=== PATIENT | female | born 1950 | race African-American/Black ===

== ENCOUNTER 2017-09-29 09:05 | Emergency (ER) | payer OTHER ==
--- OUTSIDE RECORDS SUMMARY | 2017-09-29 09:07 | XMS REPORT ---
:1950 [facility] [address] [place] [address] Care Team Providers Name Role Phone ADRIAN LITTLE Primary Care Provider Unavailable ADRIAN LITTLE Unavailable Unavailable Problems This patient has no known problems. Allergies, Adverse Reactions, Alerts This patient has no known allergies or adverse reactions. Medications This patient has no known medications. Encounters Start End Encounter Admission Attending Care Care Encounter Date/Time Date/Time Type Type Clinicians Facility Department ID 2017-08-01 2017-08-01 Outpatient [facility] [id number] 20:21:00 20:21:00 ADRIAN Results Test Description Test Time Test Comments Text Results Atomic Results Result Comments Lipid Profile 2017-08-01 22:14:00 Test Item Value Reference Range Comments Cholesterol (test code=CHOL) 156 mg/dL 0-200 Triglycerides (test code=TRIG) 193 mg/dL 9-200 HDL (test code=HDL) 53 mg/dL 50-60 Chol/HDL (test code=CHOLPHDL) 2.9 Ratio 0.0-4.4 LDL, Calculated (test 64 mg/dL 0-130 (NOTE)RISK OF HEART DISEASEPublished code=LDLC) by Norwegian Heart AssociationAnalyte Optimal Boderline Increased RiskCHOL <200 200-239 >240TRIG <150 150-199 >200HDL Male: >60 <40HDL Female: >60 <50LDL <100 130-159 >160LDL NEAR OPTIMAL IS 100-129 VLDL (test code=VLDL) 39 mg/dL 5-40 LDL/HDL (test code=LDLPHDL) 1
[2017-09-29 10:09] LABS: Urine Blood NEGATIVE (NEG); Urine Glucose NEGATIVE (NEG); Urine Protein TRACE (NEG)
[2017-09-29 10:12] LABS: Urine Bacteria >50 /HPF (<20); Urine Culture Reflex Order NOT NEEDED; Urine Mucus LIGHT /HPF (NONE SEEN)
[2017-09-29 10:15] LABS: Absolute Lymphocytes (CBC) 1.4 K/uL (0.7-4.9); Absolute Monocytes 0.6 K/uL (0.1-1.3); Absolute Neutrophil 4.2 K/uL (1.8-8.0); Basophils % 0.4 % (0-1.3); Hematocrit 37.8 % (36.0-45.0); Lymphocytes % 22.1 % (15.3-44.8); MCH 26.9 pg (27.0-35.0); MCV 83.7 fL (80-100); MPV 8.9 fL (7.6-11.3); Monocytes % 9.6 % (3.3-12.3); RBC Red Blood Cell Count 4.52 M/uL (3.86-4.86)
[2017-09-29 10:20] LABS: Bicarbonate 26 mEq/L (21-31); Glucose Level 106 mg/dL (65-120); Lipase 26 U/L (22-51); Potassium 4.1 mEq/L (3.6-5.0); Sodium Level 135 mEq/L (135-145)
[2017-09-29 10:27] LABS: ALT/SGPT 13 IU/L (10-60); AST/SGOT 20 IU/L (10-42); Albumin 3.8 g/dL (3.2-5.5); Alkaline Phosphatase 93 IU/L (42-121); Amylase Level 89 U/L (28-100); BUN Blood Urea Nitrogen 20 mg/dL (6-20); Bilirubin Direct < 0.1 mg/dL (0-0.2); Bilirubin Total 0.3 mg/dL (0.3-1.2); Protein, Total 7.5 g/dL (6.0-8.3)
--- NOTE | 2017-09-29 10:47 | EDPHYS ---
Physician Documentation [facility] Name: Sondra Ruelas Age: 67 yrs Sex: Female : 1950 Arrival Date: 09/29/2017 Time: 09:09 Bed 6 Private MD: ED Physician Ad Lucas HPI: 09/29 10:12 This 67 yrs old Black Female presents to ER via Ambulatory with complaints of kb Nausea/Vomiting/Diarrhea. 10:12 The patient presents to the emergency department with nausea, diarrhea. Onset: The kb symptoms/episode began/occurred last week. Possible causes: unknown. The symptoms are aggravated by nothing. The symptoms are alleviated by nothing. Associated signs and symptoms: Pertinent positives: belching, diarrhea, nausea. Severity of symptoms: At their worst the symptoms were mild moderate in the emergency department the symptoms are unchanged. The patient has not experienced similar symptoms in the past. The patient has been recently seen by a physician: the ER physician, out of Town, 3 day(s) ago, with similar presenting complaints, states nothing was done for her during her ER visit at [place]. No abd pain. Has appt with Nicki on Sunday. Historical: - Allergies: 09:30 No Known Allergies; hb - Home Meds: 09:30 gemfibrozil 600 mg Oral tab 1 tab 2 times per day [Active]; Vitamin D Oral 50,000 unit hb [Active]; cetirizine 10 mg oral tab 1 tab once daily [Active]; clopidogrel 75 mg oral tab 1 tab once daily [Active]; fluoxetine 20 mg Oral cap 1 cap once daily [Active]; Dexilant 60 mg oral CpDB 1 cap once daily [Active]; amlodipine 5 mg tab 1 tab once daily [Active]; carvedilol 12.5 mg oral tab 1 tab 2 times per day [Active]; - PMHx: 09:30 Diverticulitis; CKD; Fatty Liver; Hypertension; Anxiety; hb - Immunization history:: Adult Immunizations up to date. - Social history:: Smoking status: Patient/guardian denies using tobacco. ROS: 10:11 Constitutional: Negative for fever, chills, and weight loss, ENT: Negative for injury, kb pain, and discharge, Neck: Negative for injury, pain, and swelling, Cardiovascular: Negative for chest pain, palpitations, and edema, Respiratory: Negative for shortness of breath, cough, wheezing, and pleuritic chest pain, Back: Negative for injury and pain, : Negative for injury, bleeding, discharge, and swelling, MS/Extremity: Negative for injury and deformity, Skin: Negative for injury, rash, and discoloration, Neuro: Negative for headache, weakness, numbness, tingling, and seizure. 10:11 Constitutional: Positive for malaise. 10:11 Abdomen/GI: Positive for nausea, diarrhea, Negative for abdominal pain, vomiting, constipation, abdominal cramps, abdominal distension, anorexia. Exam: 10:11 Constitutional: This is a well developed, well nourished patient who is awake, alert, kb and in no acute distress. Head/Face: Normocephalic, atraumatic. ENT: Nares patent. No nasal discharge, no septal abnormalities noted. Tympanic membranes are normal and external auditory canals are clear. Oropharynx with no redness, swelling, or masses, exudates, or evidence of obstruction, uvula midline. Mucous membranes moist. Neck: Trachea midline, no thyromegaly or masses palpated, and no cervical lymphadenopathy. Supple, full range of motion without nuchal rigidity, or vertebral point tenderness. No Meningismus. Chest/axilla: Normal chest wall appearance and motion. Nontender with no deformity. No lesions are appreciated. Cardiovascular: Regular rate and rhythm with a normal S1 and S2. No gallops, murmurs, or rubs. Normal PMI, no JVD. No pulse deficits. Respiratory: Lungs have equal breath sounds bilaterally, clear to auscultation and percussion. No rales, rhonchi or wheezes noted. No increased work of breathing, no retractions or nasal flaring. Abdomen/GI: Soft, non-tender, with normal bowel sounds. No distension or tympany. No guarding or rebound. No evidence of tenderness throughout. Skin: Warm, dry with normal turgor. Normal color with no rashes, no lesions, and no evidence of cellulitis. MS/ Extremity: Pulses equal, no cyanosis. Neurovascular intact. Full, normal range of motion. Neuro: Awake and alert, GCS 15, oriented to person, place, time, and situation. Cranial nerves II-XII grossly intact. Motor strength 5/5 in all extremities. Sensory grossly intact. Cerebellar exam normal. Normal gait. Vital Signs: 09:27 BP 135 / 64; Pulse 65; Resp 16; Temp 98.1; Pulse Ox 100% on R/A; Pain 3/10; hb 10:30 BP 142 / 68; Pulse 64; Resp 16; Pulse Ox 100% on R/A; hb MDM: 09:42 Patient medically screened. kb 10:11 Data reviewed: vital signs, nurses notes. Data interpreted: Pulse oximetry: on room air kb is 100 %. Interpretation: normal. 10:44 Counseling: I had a detailed discussion with the patient and/or guardian regarding: the kb historical points, exam findings, and any diagnostic results supporting the discharge/admit diagnosis, lab results, the need for outpatient follow up, a family practitioner, a weapons mechanic, to return to the emergency department if symptoms worsen or persist or if there are any questions or concerns that arise at home. 10:46 ED course: Pt reports symptoms are better after protonix. kb 10:47 ED course: Pt instructed to keep appt with Nicki on Sunday. kb 09/29 09:40 Order name: Urine Dipstick--Ancillary (enter results); Complete Time: 10:10 eb 09/29 09:42 Order name: Amylase, Serum; Complete Time: 10:28 kb 09/29 09:42 Order name: Basic Metabolic Panel; Complete Time: 10:28 kb 09/29 09:42 Order name: CBC with Diff; Complete Time: 10:20 kb 09/29 09:42 Order name: Hepatic Function; Complete Time: 10:28 kb 09/29 09:42 Order name: Lipase; Complete Time: 10:28 kb 09/29 09:42 Order name: Urine Microscopic Only; Complete Time: 10:14 kb 09/29 09:42 Order name: IV Saline Lock; Complete Time: 09:57 kb 09/29 09:42 Order name: Labs collected and sent; Complete Time: 09:57 kb Administered Medications: 10:15 Drug: ProTONIX 40 mg Route: IVP; Site: right antecubital; hb 10:46 Follow up: Response: No adverse reaction hb 10:55 Drug: Macrobid 100 mg Route: PO; hb 10:55 Follow up: Response: Medication administered at discharge. hb Disposition: 09/29/17 10:47 Discharged to Home. Impression: Gastro-esophageal reflux disease, Urinary tract infection, site not specified. - Condition is Stable. - Discharge Instructions: Gastroesophageal Reflux Disease, Adult, Urinary Tract Infection, [id number]. - Prescriptions for Protonix 40 mg Oral Tablet, Delayed Release (E.C.) - take 1 tablet by ORAL route once daily; 15 tablet. Macrobid 100 mg Oral Capsule - take 1 capsule by ORAL route every 12 hours for 7 days; 14 capsule. - Medication Reconciliation Form, Thank You Letter, Antibiotic Education, Prescription Opioid Use form. - Follow up: Emergency Department; When: As needed; Reason: Worsening of condition. Follow up: Private Physician; When: 2 - 3 days; Reason: Recheck today's complaints, Continuance of care, Re-evaluation by your physician. Addendum: 10/01/2017 08:47 Co-signature as Attending Physician, Ad Lucas MD I agree with the assessment and c larry plan of care. Signatures: Dispatcher [employer] Heather Santoro, STONE SAWYER-C STONE SAWYER-CkAd Dahl MD MD cha Baxter, Heather, RN RN
--- NOTE | 2017-09-29 10:47 | ER ---
Nurse's Notes [facility] Name: Sondra Ruelas Age: 67 yrs Sex: Female : 1950 Arrival Date: 09/29/2017 Time: 09:09 Bed 6 Private MD: Diagnosis: Gastro-esophageal reflux disease;Urinary tract infection, site not specified Presentation: 09/29 09:25 Presenting complaint: Patient states: N/D and low back pain x 3 days. Pt also reports hb an increase in belching x 2 days. Denies injury/urinary s/s. Transition of care: patient was not received from another setting of care. Onset of symptoms is unknown. Initial Sepsis Screen: Does the patient meet any 2 criteria? No. Patient's initial sepsis screen is negative. Does the patient have a suspected source of infection? No. Patient's initial sepsis screen is negative. Care prior to arrival: None. 09:25 Method Of Arrival: Ambulatory hb 09:25 Acuity: AILYN 3 hb Historical: - Allergies: :30 No Known Allergies; hb - Home Meds: :30 gemfibrozil 600 mg Oral tab 1 tab 2 times per day [Active]; Vitamin D Oral 50,000 unit hb [Active]; cetirizine 10 mg oral tab 1 tab once daily [Active]; clopidogrel 75 mg oral tab 1 tab once daily [Active]; fluoxetine 20 mg Oral cap 1 cap once daily [Active]; Dexilant 60 mg oral CpDB 1 cap once daily [Active]; amlodipine 5 mg tab 1 tab once daily [Active]; carvedilol 12.5 mg oral tab 1 tab 2 times per day [Active]; - PMHx: 09:30 Diverticulitis; CKD; Fatty Liver; Hypertension; Anxiety; hb - Immunization history:: Adult Immunizations up to date. - Social history:: Smoking status: Patient/guardian denies using tobacco. Screenin: Abuse screen: Denies threats or abuse. Denies injuries from another. Nutritional hb screening: No deficits noted. Tuberculosis screening: No symptoms or risk factors identified. Fall Risk None identified. Assessment: : General: Appears in no apparent distress. Behavior is calm, cooperative. Pain: Pain hb currently is 3 out of 10 on a pain scale. Neuro: Level of Consciousness is awake, alert, obeys commands, Oriented to person, place, time, situation. Cardiovascular: Capillary refill < 3 seconds Patient's skin is warm and dry. Respiratory: Airway is patent Trachea midline Respiratory effort is even, unlabored, Respiratory pattern is regular, symmetrical, Breath sounds are clear bilaterally. GI: Abdomen is non-distended, Bowel sounds present X 4 quads. Abd is soft and non tender X 4 quads. GI: Reports diarrhea, indigestion, nausea. : No signs and/or symptoms were reported regarding the genitourinary system. EENT: No signs and/or symptoms were reported regarding the EENT system. Derm: No signs and/or symptoms reported regarding the dermatologic system. Skin is intact, is healthy with good turgor. Musculoskeletal: No signs and/or symptoms reported regarding the musculoskeletal system. Circulation, motion, and sensation intact. Capillary refill < 3 seconds. 10:30 Reassessment: Patient appears in no apparent distress at this time. No changes from hb previously documented assessment. Patient and/or family updated on plan of care and expected duration. Pain level reassessed. Patient is alert, oriented x 3, equal unlabored respirations, skin warm/dry/pink. Vital Signs: 09:27 BP 135 / 64; Pulse 65; Resp 16; Temp 98.1; Pulse Ox 100% on R/A; Pain 3/10; hb 10:30 BP 142 / 68; Pulse 64; Resp 16; Pulse Ox 100% on R/A; hb ED Course: 09:09 Patient arrived in ED. mr 09:25 Annetta Winston, RN is Primary Nurse. hb 09:26 Triage completed. hb 09:31 Arm band placed on right wrist. hb 09:32 Patient has correct armband on for positive identification. Bed in low position. Call hb light in reach. Side rails up X 1. 09:42 Heather Anaya FNP-C is PHCP. kb 09:42 Ad Lucas MD is Attending Physician. kb 09:53 Inserted saline lock: 20 gauge in right antecubital area, using aseptic technique. hb Blood collected. 10:30 No provider procedures requiring assistance completed. IV discontinued, intact, hb bleeding controlled, No redness/swelling at site. Pressure dressing applied. Administered Medications: 10:15 Drug: ProTONIX 40 mg Route: IVP; Site: right antecubital; hb 10:46 Follow up: Response: No adverse reaction hb 10:55 Drug: Macrobid 100 mg Route: PO; hb 10:55 Follow up: Response: Medication administered at discharge. hb Outcome: 10:30 Discharged to home ambulatory, with significant other. hb 10:30 Condition: stable 10:30 Discharge instructions given to patient, family, Instructed on discharge instructions, follow up and referral plans. medication usage, Demonstrated understanding of instructions, follow-up care, medications, Prescriptions given X 2. 10:47 Discharge ordered by . kb 10:57 Patient left the ED. hb Signatures: Heather Anaya, OPTOMECHANICAL TECHNICIAN-C OPTOMECHANICAL TECHNICIAN-Isela Solorzano mr Annetta Winston, RN RN hb
[2017-09-29] MEDS ORDERED: NITROFURAN MACRO 100 MG CAP PO ONE (10:49)
== END 2017-09-29 10:57 | disposition home or self-care (01) ==
LOC: ER 09:05
DX: K21.9 Gastro-esophageal reflux disease without esophagitis (principal); N39.0 Urinary tract infection, site not specified; I10 Essential (primary) hypertension; F41.9 Anxiety disorder, unspecified
CPT/HCPCS: 36415; 80048; 80076; 81003; 81015; 82150; 83690; 85025; 96374; 99284

== ENCOUNTER 2020-02-11 16:12 | Emergency (ER) | payer OTHER ==
--- OUTSIDE RECORDS SUMMARY | 2020-02-11 16:16 | XMS REPORT | Encounter Summary ---
:1950 Author Care Team Providers Name Role Phone Ole Bowen MD Primary Care Provider [phone] Kaylie Lau MD OTHER [phone] Cody Laurie OTHER [phone] Reason for Visit Follow Up Visit Instructions 1. 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 Plan of Care Reminders Provider Appointments Follow up 02/11/2020 Clay Hermosillo 2:00PM MD [facility] None recorded. Referral None recorded. Procedures None recorded. Surgeries None recorded. Imaging None recorded. Medications Name Start Date acyclovir 400 mg tablet amlodipine 5 mg tablet azelastine 137 mcg (0.1 %) nasal spray aerosol B12 take it once a day carvedilol 12.5 mg tablet Take 1 tablet twice a day by oral route as directed. cetirizine 10 mg tablet Take 1 tablet every day by oral route as needed for 9 0 days. clonazepam 1 mg tablet Take 1 tablet every day by oral route at bedtime. clopidogrel 75 mg tablet Take 1 tablet every day by oral route as directed. cyclobenzaprine 10 mg tablet Dexilant 60 mg capsule, delayed release Take 1 capsule every day by oral route for 56 days. famotidine 40 mg tablet Flovent HFA 110 mcg/actuation aerosol inhaler fluoxetine 20 mg capsule fluticasone propionate 50 mcg/actuation nasal spray,richardson spension INHALE 1 SPRAYS IN EACH NOSTRIL BY INTRANASAL ROUTE 1 TIME PER DAY gabapentin 100 mg capsule Take 1 capsule 3 times a day by oral route for 15 day s. montelukast 10 mg tablet rosuvastatin 20 mg tablet Take 1 tablet every day by oral route as directed. valacyclovir 1 gram tablet Vitamin D2 1,250 mcg (50,000 unit) capsule Take 1 capsule every week by oral route as directed f or 28 days. Medications Administered None recorded. Vitals Height Weight BMI Blood Pressure 5 ft 7 in 176 lbs 27.6 kg/m2 119/52 mm[Hg] Results Lab Results None recorded. Allergies Code Code System Name Reaction Severity Status Onset 2551 RxNorm Ciprofloxacin Itching Moderate Active 2670 RxNorm Codeine Other Mild to Active Moderate Problems Name Status Onset Date Source Chronic Low Back Pain Active 07/04/2016 Seasonal Allergy Active 09/26/2016 Candidiasis of Skin Active 12/26/2016 Adverse Reaction to Drug Active 01/15/2017 Candidiasis of Vulva Active 09/04/2018 Chronic Kidney Disease Stage 3 Active 09/04/2018 Herpes Zoster Active Encounter Recurrent Herpes Simplex Active Encount er Candidal Vulvovaginitis Active Encounte r Hyperlipidemia Active History Dehydration Active Encounter Essential Hypertension Active History Acute Sinusitis Active Encounter Upper Respiratory Infection Active Enco unter Chronic Rhinitis Active Encounter Chronic Sinusitis Active Encounter Sinusitis Active Encounter Allergic Rhinitis Active Encounter Recurrent Ventral Incisional Hernia Active Encounter Steatosis of Liver Active Encounter Urinary Tract Infectious Disease Active Encounter Female Proctocele without Uterine Active Encounter Prolapse Cramp in Lower Limb Active Encounter Computed Tomography Result Abnormal Active Encounter Fracture of Ankle Active Encounter Elevated Liver Enzymes Level Active Enc ounter Procedures Date Name Performed by 11/02/2013 Colonoscopy Thru Stoma Spx Information n ot available 11/02/2013 Egd Information not avai lable 03/14/2013 Rpr Ventral Laura Init Reduc Information not available 06/04/2012 Anesth Repair of Hernia Information not available 06/04/2012 Hernia Repair Information not avai lable 06/04/2010 Cholecystectomy Information not avai lable 06/04/1984 Total Hysterectomy Information not avai lable Anesth Repair of Hernia Information not available Vaccine List Vaccine Type influenza, high dose seasonal 03/14/2013 03/18/2014 04/19/20170.5 mL pneumococcal conjugate PCV 13 03/14/2013 Social History Tobacco Smoking Status Never Smoker Past Encounters 01/21/2020 Prolapse of Vaginal Vault after Hysterec evi Young MD: [address], [place] [address], Ph. [phone] History of Present Illness Note: 69 yo G0 who presents here for f/u on vaginal prolapse. Pt not interested in surgical treatment for the prolapse. Pt would like to have a pessary placed. No vaginal bleeding but has been having frequent UTI and some constipation. Pt also is currently with a shingles outbreak. She has meds at the pharmacy to treat the condition.--LRReview of Systems: ROS as noted in the HPI Review of Systems None recorded. Physical Exam None recorded.
--- OUTSIDE RECORDS SUMMARY | 2020-02-11 16:16 | XMS REPORT | Encounter Summary ---
:1950 Author Care Team Providers Name Role Phone Ole Bowen MD Primary Care Provider [phone] Elvia Ruiz Primary Care Provider [phone] Kaylie Lau MD Referring Provider [phone] Rosa Mi MD Referring Provider [phone] Oumar Caceres MD OTHER [phone] Reason for Visit None recorded. Instructions 1. Herpes zoster valacyclovir 1 gram tablet Discussion Note: None recorded.Patient educational handouts: No information available. Plan of Care Reminders Provider Appointments None recorded. Lab None recorded. Referral None recorded. Procedures None recorded. Surgeries None recorded. Imaging None recorded. Medications Name Start Date acyclovir 400 mg tablet amlodipine 5 mg tablet amoxicillin 875 mg-potassium clavulanate 125 mg tablet azelastine 137 mcg (0.1 %) nasal spray aerosol carvedilol 12.5 mg tablet clonazepam 1 mg tablet clopidogrel 75 mg tablet cyclobenzaprine 10 mg tablet famotidine 40 mg tablet Flovent HFA 110 mcg/actuation aerosol inhaler fluoxetine 20 mg capsule Take 1 capsule every day by oral route for 90 days. fluticasone propionate 50 mcg/actuation nasal spray,richardson spension ibuprofen 800 mg tablet Kenalog 40 mg/mL suspension for injection Take 40 mg by injection route. lidocaine HCl 2 % mucosal jelly methylprednisolone 4 mg tablets in a dose pack montelukast 10 mg tablet TAKE 1 TABLET BY MOUTH EVERY DAY FOR 30 DAYS nystatin 100,000 unit/mL oral suspension Take 5 mL every 6 hours by oral route for 10 days. rosuvastatin 20 mg tablet valacyclovir 1 gram tablet Take 1 tablet every 8 hours by oral route for 7 days. Zyrtec 10 mg tablet TAKE 1 TABLET BY MOUTH EVERY DAY NEEDED FOR 30 DAY S Medications Administered None recorded. Vitals Height 5 ft 7 in Results Lab Results None recorded. Allergies Code Code System Name Reaction Severity Status Onset 454567 RxNorm Cipro Itching Mild to Active 03/21/2019 Moderate 258247 RxNorm Bactrim Abdominal Pain Active 2670 RxNorm Codeine Other Mild to Active Moderate Problems Name Status Onset Date Source Herniation of Rectum into Vagina Active 12/03/2017 Hyperlipidemia Active 03/25/2018 Anxiety Active 03/25/2018 Essential Hypertension Active 03/25/2018 Disorder of Coronary Artery Active 03/25/2018 Chronic Kidney Disease Stage 3 Active 03/25/2018 Prolapse of Urethra Active 03/27/2018 Procedures Date Name Performed by 06/04/2012 Cholecystectomy Information not avai lable 06/04/2010 Hernia Repair W/mesh Information not alyssia ilable 06/04/1985 Total Hysterectomy Information not avai lable Hernia Repair W/mesh Information not alyssia ilable Vaccine List Vaccine Type influenza, injectable, quadrivalent 06/04/2016 Social History Tobacco Smoking Status Never Smoker Past Encounters 01/27/2020 Herpes Zoster Krista Jama, [employer]: [address], [place] [address], Ph. History of Present Illness Note: <p>patient stated she was given gabapentin for the shingles but was not given acyclovir which she needs. telehealth phone visit done</p> Review of Systems None recorded. Physical Exam None recorded.
--- OUTSIDE RECORDS SUMMARY | 2020-02-11 16:16 | XMS REPORT | Continuity of Care Document ---
:1950 Author Organization [facility] t Address [address] [place] [address] Care Team Providers Name Role Phone ANABEL Primary Care Physician Unavailable DR YAMEL Attending Clinician Unavailable DR Scott ARELLANO Attending Clinician Unavailable DR THOMAS Attending Clinician Unavailable DR ALFREDO Attending Clinician Unavailable DR Genevieve HAMILTON Attending Clinician Unavailable DR ARYA Attending Clinician Unavailable DR Nevin SHELDON Attending Clinician Unavailable DR VANESSA Attending Clinician Unavailable ANABEL Attending Clinician Unavailable DR YAMEL Admitting Clinician Unavailable DR Scott ARELLANO Admitting Clinician Unavailable DR THOMAS Admitting Clinician Unavailable DR ALFREDO Admitting Clinician Unavailable DR Genevieve HAMILTON Admitting Clinician Unavailable DR ARYA Admitting Clinician Unavailable DR Nevin SHELDON Admitting Clinician Unavailable DR VANESSA Admitting Clinician Unavailable ANABEL Admitting Clinician Unavailable Problems Condition Condition Condition Status Onset Resolution Last Treating Co mments Source Name Details Category Date Date Treatment Clinician Date Candidiasi Candidiasi Problem Active [facility] of vulva s of Vulva 4-03 da 00:00: Medical 00 Group Chronic Chronic Problem Active [place] kidney Kidney 4-03 da disease Disease 00:00: Medical stage 3 Stage 3 00 Group Prolapse Prolapse Problem Active 2017-06 [facility] [facility] urethra of Urethra 0-24 [facility] Anxiety Anxiety Problem Active 2017-06 [facility] 0-22 da 00:[facility]: [facility] 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 [place] of of 0-22 da coronary Coronary 00:00: [facility] p artery Artery 00 al [facility] Chronic Chronic Problem Active 2017-06 [place] kidney Kidney 0-22 da disease Disease 00:00: [facility] stage 3 Stage 3 00 al [facility] Herniation Herniation Problem Active [facility] of rectum of Rectum 7-02 da into into 00:00: [facility] vagina Vagina 00 al [facility] Adverse Adverse Problem Active [facility] reaction Reaction 8-14 da to drug to Drug 00:00: Medical 00 Group Candidiasi Candidiasi Problem Active [facility] of skin s of Skin 7-25 da 00:00: Medical 00 Group Seasonal Seasonal Problem Active [facility] allergy Allergy 425 da 00:00: Medical 00 Group Chronic Chronic Problem Active [facility] low back Low Back 1-31 da pain Pain 00:00: Medical 00 Group Herpes Herpes Problem Active [facility] zoster Zoster [facility] 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[facility] herpes Herpes da simplex [facility] Candidal Candidal Problem Active [facility] vulvovagin Vulvovagin da itis itis Medical Group Hyperlipid Hyperlipid Problem Active [facility] emia emia [facility] Dehydratio Dehydratio Problem Active [facility] n n [facility] Group Essential Essential Problem Active [facility] hypertensi Hypertensi da on on Medical Group Acute Acute Problem Active [facility] sinusitis Sinusitis [facility] Group Upper Upper Problem Active [facility] respirator Respirator da y y Medical infection Infection Grou p Chronic Chronic Problem Active [facility] rhinitis Rhinitis da Medical Group Chronic Chronic Problem Active [facility] sinusitis Sinusitis [facility] Sinusitis Sinusitis Problem Active [facility] Allergic Allergic Problem Active [facility] rhinitis Rhinitis [facility] 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 Hernia Group Steatosis Steatosis Problem Active [facility] of liver of Liver [facility] Group Urinary Urinary Problem Active [facility] tract Tract da infectious Infectious Me dical disease Disease Group Female 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 [facility] proctocele Proctocele da without without Medical uterine Uterine Group prolapse Prolapse Cramp in Cramp in Problem Active [facility] lower limb Lower Limb da Medical Group Computed Computed Problem Active [facility] tomography Tomography da result Result Medical abnormal Abnormal Group Fracture Fracture Problem Active [facility] [facility] of ankle of Ankle da Medical Group Elevated Elevated Problem Active [facility] liver Liver da enzymes Enzymes Medical level Level Group Allergies, Adverse Reactions, Alerts Allergy Allergy Status Severity Reaction(s) Onset Inactive Treating Comm ents Source Name Type Date Date Clinician Cipro Allergy Active Mild to Itching 2018-06 [place] to moderate 0-18 da substanc 00:00: [facility] Bactrim Allergy Active Abdominal [facility] to pain da substanc [facility] Codeine Allergy Active Mild to Other [facility] to moderate da substanc [facility] Ciproflo Allergy Active Moderate Itching Jin gor xacin to da substanc Medical e Group Social History Smoking Status Start Date Stop Date Source Never Smoker [facility] Medications Ordered Filled Start Stop Current Ordering Indication Dosage Frequency Signature Comments Components Source Medication Medication Date Date Medication? Clinician (SIG) Name Name acyclovir acyclovir No acyclovir [facility] 400 mg 400 mg 400 mg da tablet tablet tablet [facility] amlodipine amlodipine No amlodipine [facility] 5 mg tablet 5 mg tablet 5 mg d a tablet [facility] amoxicillin amoxicillin No amoxicilli [facility] [phone] n 875 da mg-potassiu mg-potassiu mg-potassi [facility] m um al clavulanate clavulanate clavulanat Health 125 mg 125 mg e 125 mg Outreac tablet tablet tablet h Program azelastine azelastine No azelastine [place] 137 mcg 137 mcg 137 mcg da (0.1 %) (0.1 %) (0.1 %) [facility] nasal spray nasal spray nasal al aerosol aerosol spray Health aerosol Outreac h Program carvedilol carvedilol No carvedilol [facility] 12.5 mg 12.5 mg 12.5 mg da tablet tablet tablet [facility] Out[facility] Program clonazepam clonazepam No clonazepam [place] 1 mg tablet 1 mg tablet 1 mg d a tablet [facility] clopidogrel clopidogrel No clopidogre [place] 75 mg 75 mg l 75 mg da tablet tablet tablet [facility] Program cyclobenzap cyclobenzap No cyclobenza [place] rine 10 mg rine 10 mg leonel 10 da tablet tablet mg tablet [facility] famotidine famotidine No famotidine [place] 40 mg 40 mg 40 mg da tablet tablet tablet [facility] Program Flovent HFA Flovent HFA No Flovent [place] 110 110 HFA 110 da mcg/actuati mcg/actuati mcg/actuat [facility] on aerosol on aerosol ion al inhaler inhaler aerosol Health inhaler Outre h Program fluoxetine fluoxetine No 1capsul Q1D fluoxetine [facility] 20 mg 20 mg e(s) 20 mg da capsule capsule capsule [facility] Take 1 Take 1 Take 1 al capsule capsule capsule Health every day every day every day Outreac by oral by oral by oral h route for route for route for Program 90 days. 90 days. 90 days. fluticasone fluticasone No fluticason [place] propionate propionate e da 50 50 propionate [facility] mcg/actuati mcg/actuati 50 a l on nasal on nasal mcg/actuat H ealth spray,suspe spray,suspe ion nasal Outreac nsion nsion spray,susp h ension Program ibuprofen ibuprofen No ibuprofen [place] 800 mg 800 mg 800 mg da tablet tablet tablet [facility] Out[facility] Program Kenalog 40 Kenalog 40 No 40mg Kenalog 40 [facility] mg/mL mg/mL mg/mL da suspension suspension suspension [facility] for for for al injection injection injection Health Take 40 mg Take 40 mg Take 40 mg Outreac by by by h injection injection injection Program route. route. route. lidocaine lidocaine No lidocaine [facility] HCl 2 % HCl 2 % HCl 2 % da mucosal mucosal mucosal [facility] jelly jelly jelly al Health Outreac h Program methylpredn methylpredn No methylpred [facility] isolone 4 isolone 4 nisolone 4 da mg tablets mg tablets mg tablets [facility] in a dose in a dose in a dose al pack pack pack Health Outreac h Program montelukast montelukast No montelukas [place] 10 mg 10 mg t 10 mg da tablet TAKE tablet TAKE tablet [facility] 1 TABLET BY 1 TABLET BY TAKE 1 al MOUTH EVERY MOUTH EVERY TABLET BY Health DAY FOR 30 DAY FOR 30 MOUTH Ou treac DAYS DAYS EVERY DAY h FOR 30 Program DAYS nystatin nystatin No nystatin [facility] 100,000 100,000 100,000 da unit/mL unit/mL unit/mL [facility] oral oral oral al suspension suspension suspension Health Take 5 mL Take 5 mL Take 5 mL Outreac every 6 every 6 every 6 h hours by hours by hours by Pro gram oral route oral route oral route for 10 for 10 for 10 days. days. days. rosuvastati rosuvastati No rosuvastat [place] n 20 mg n 20 mg in 20 mg da tablet tablet tablet [facility] valacyclovi valacyclovi No 1 Q8H valacyclov [place] r 1 gram r 1 gram ir 1 gram da tablet Take tablet Take tablet [facility] 1 tablet 1 tablet Take 1 al every 8 every 8 tablet Health hours by hours by every 8 Outr eac oral route oral route hours by h for 7 days. for 7 days. oral route Program for 7 days. Zyrtec 10 Zyrtec 10 No Zyrtec 10 [facility] mg tablet mg tablet mg tablet da TAKE 1 TAKE 1 TAKE 1 [facility] TABLET BY TABLET BY TABLET BY al MOUTH EVERY MOUTH EVERY MOUTH Health DAY DAY EVERY DAY Outrea c NEEDED FOR NEEDED FOR NEEDED h 30 DAYS 30 DAYS FOR 30 Program DAYS acyclovir acyclovir No acyclovir [place] 400 mg 400 mg 400 mg da tablet tablet tablet Medical Group amlodipine amlodipine No amlodipine [place] 5 mg tablet 5 mg tablet 5 mg d a tablet Medical Group azelastine azelastine No azelastine [place] 137 mcg 137 mcg 137 mcg da (0.1 %) (0.1 %) (0.1 %) Medica l nasal spray nasal spray nasal Group aerosol aerosol spray aerosol B12 take it B12 take it No B12 take [place] once a day once a day it once a da day Medical Group carvedilol carvedilol No carvedilol [facility] 12.5 mg 12.5 mg 12.5 mg da tablet Take tablet Take tablet Medical 1 tablet 1 tablet Take 1 Group twice a day twice a day tablet by oral by oral twice a route as route as day by directed. directed. oral route as directed. cetirizine cetirizine No cetirizine [facility] 10 mg 10 mg 10 mg da tablet Take tablet Take tablet Medical 1 tablet 1 tablet Take 1 Group every day every day tablet by oral by oral every day route as route as by oral needed for needed for route as 90 days. 90 days. needed for 90 days. clonazepam clonazepam No clonazepam [facility] 1 mg tablet 1 mg tablet 1 mg d a Take 1 Take 1 tablet Medical tablet tablet Take 1 Group every day every day tablet by oral by oral every day route at route at by oral bedtime. bedtime. route at bedtime. clopidogrel clopidogrel No clopidogre [facility] 75 mg 75 mg l 75 mg da tablet Take tablet Take tablet Medical 1 tablet 1 tablet Take 1 Group every day every day tablet by oral by oral every day route as route as by oral directed. directed. route as directed. cyclobenzap cyclobenzap No cyclobenza [place] rine 10 mg rine 10 mg leonel 10 da tablet tablet mg tablet Medica l Group Dexilant 60 Dexilant 60 No Dexilant [facility] mg capsule, mg capsule, 60 mg da delayed delayed capsule, Medic al release release delayed Group Take 1 Take 1 release capsule capsule Take 1 every day every day capsule by oral by oral every day route for route for by oral 56 days. 56 days. route for 56 days. famotidine famotidine No famotidine [facility] 40 mg 40 mg 40 mg da tablet tablet tablet Medical Group Flovent HFA Flovent HFA No Flovent [place] 110 110 HFA 110 da mcg/actuati mcg/actuati mcg/actuat Medical on aerosol on aerosol ion Tevin up inhaler inhaler aerosol inhaler fluoxetine fluoxetine No fluoxetine [facility] 20 mg 20 mg 20 mg da capsule capsule capsule Medica l Group fluticasone fluticasone No fluticason [place] propionate propionate e da 50 50 propionate Medical mcg/actuati mcg/actuati 50 G roup on nasal on nasal mcg/actuat spray,suspe spray,suspe ion nasal nsion nsion spray,susp INHALE 1 INHALE 1 ension SPRAYS IN SPRAYS IN INHALE 1 EACH EACH SPRAYS IN NOSTRIL BY NOSTRIL BY EACH INTRANASAL INTRANASAL NOSTRIL BY ROUTE 1 ROUTE 1 INTRANASAL TIME PER TIME PER ROUTE 1 DAY DAY TIME PER DAY gabapentin gabapentin No gabapentin [facility] 100 mg 100 mg 100 mg da capsule capsule capsule Medica l Take 1 Take 1 Take 1 Group capsule 3 capsule 3 capsule 3 times a day times a day times a by oral by oral day by route for route for oral route 15 days. 15 days. for 15 days. montelukast montelukast No montelukas [facility] 10 mg 10 mg t 10 mg da tablet tablet tablet Medical Group rosuvastati rosuvastati No rosuvastat [place] n 20 mg n 20 mg in 20 mg da tablet Take tablet Take tablet Medical 1 tablet 1 tablet Take 1 Group every day every day tablet by oral by oral every day route as route as by oral directed. directed. route as directed. valacyclovi valacyclovi No valacyclov [place] r 1 gram r 1 gram ir 1 gram da tablet tablet tablet Medical Group Vitamin D2 Vitamin D2 No 1capsul Q1W Vitamin D2 [facility] 1,250 mcg 1,250 mcg e(s) 1,250 mcg da (50,000 (50,000 (50,000 Medica l unit) unit) unit) Group capsule capsule capsule Take 1 Take 1 Take 1 capsule capsule capsule every week every week every week by oral by oral by oral route as route as route as directed directed directed for 28 for 28 for 28 days. days. days. Immunizations Ordered Immunization Filled Immunization Date Status Commen ts Source Name Name influenza, high dose influenza, high 2017-04-19 Completed [facility] seasonal dose seasonal 16:20:11 Medical Tevin up influenza, influenza, 2016-06-04 Completed [facility] injectable, injectable, 00:00:00 [facility] alth quadrivalent quadrivalent Outreach P rogram influenza, high dose influenza, high 2014-03-18 Completed [facility] seasonal dose seasonal 00:00:00 Medical Tevin up influenza, high dose influenza, high 2013-03-14 Completed [facility] seasonal dose seasonal 00:00:00 Medical Tevin up pneumococcal pneumococcal 2013-03-14 Completed [facility] conjugate PCV 13 conjugate PCV 13 00:00:00 Fl dical Group Vital Signs Vital Name Observation Time Observation Value Comments Source Height 2020-01-27 00:00:00 67 [in_i] [facility] BP Diastolic 2020-01-21 00:00:00 52 mm[facility]Hg[facility] Height 2020-01-21 00:00:00 67 [in_i] [facility] BMI (Body Mass 2020-01-21 00:00:00 27.6 kg/m2 [facility] closer Medical Index) Group BP Systolic 2020-01-21 00:00:00 119 [facility]Hg[facility] Body Weight 2020-01-21 00:00:00 176 [lb_av] [facility] BP Diastolic 2019-10-18 00:00:00 84 mm[Hg] [facility] Height 2019-10-18 00:00:00 67 [in_i] [facility] BMI (Body Mass 2019-10-18 00:00:00 27.3 kg/m2 [facility] Index) [facility] Outreach Program BP Systolic 2019-10-18 00:00:00 125 mm[Hg] [facility] Body Weight 2019-10-18 00:00:00 174 [lb_av] [facility] BP Diastolic 2019-09-23 00:00:00 74 mm[Hg] [facility] Height 2019-09-23 00:00:00 67 [in_i] [facility] BMI (Body Mass 2019-09-23 00:00:00 27.4 kg/m2 [facility] Index) [facility] Out[facility] BP Systolic 2019-09-23 00:00:00 150 mm[Hg] [facility] Body Weight 2019-09-23 00:00:00 175 [lb_av] [facility] BP Diastolic 2019-09-09 00:00:00 64 mm[Hg] [facility] Height 2019-09-09 00:00:00 67 [in_i] [facility] BMI (Body Mass 2019-09-09 00:00:00 26.2 kg/m2 [facility] Index) [facility] BP Systolic 2019-09-09 00:00:00 138 mm[Hg] [facility] Body Weight 2019-09-09 00:00:00 167.4 [lb_av] [facility] BP Diastolic 2019-07-22 00:00:00 69 mm[Hg] [facility] Height 2019-07-22 00:00:00 67 [in_i] [facility] BMI (Body Mass 2019-07-22 00:00:00 26.5 kg/m2 [facility] Index) [facility] BP Systolic 2019-07-22 00:00:00 135 mm[Hg] [facility] Body Weight 2019-07-22 00:00:00 169 [lb_av] [facility] BP Diastolic 2019-04-21 00:00:00 65 mm[Hg] [facility] Height 2019-04-21 00:00:00 67 [in_i] [facility] BMI (Body Mass 2019-04-21 00:00:00 27.5 kg/m2 [facility] closer Medical Index) Group BP Systolic 2019-04-21 00:00:00 148 mm[Hg] [facility] Body Weight 2019-04-21 00:00:00 2808 [oz_av] [facility] BP Diastolic 2019-03-26 00:00:00 80 mm[Hg] [facility] Height 2019-03-26 00:00:00 67 [in_i] [facility] BMI (Body Mass 2019-03-26 00:00:00 26.8 kg/m2 [facility] Index) [facility] BP Systolic 2019-03-26 00:00:00 140 mm[Hg] [facility] Body Weight 2019-03-26 00:00:00 171 [lb_av] [facility] BP Diastolic 2019-02-17 00:00:00 79 mm[Hg] [facility] Height 2019-02-17 00:00:00 67 [in_i] [facility] BMI (Body Mass 2019-02-17 00:00:00 25.8 kg/m2 [facility] Index) [facility]reach [facility] BP Systolic 2019-02-17 00:00:00 149 mm[Hg] [facility] Body Weight 2019-02-17 00:00:00 164.6 [lb_av] [facility] BP Diastolic 2018-10-30 00:00:00 56 mm[Hg] [facility] Height 2018-10-30 00:00:00 67 [in_i] [facility] BMI (Body Mass 2018-10-30 00:00:00 25.1 kg/m2 [facility] closer Medical Index) Group BP Systolic 2018-10-30 00:00:00 115 mm[Hg] [facility] Body Weight 2018-10-30 00:00:00 160.4 [lb_av] [facility] BP Diastolic 2018-10-10 00:00:00 63 mm[Hg] [facility] Height 2018-10-10 00:00:00 67 [in_i] [facility] BMI (Body Mass 2018-10-10 00:00:00 24.9 kg/m2 [facility] closer Medical Index) Group BP Systolic 2018-10-10 00:00:00 123 mm[Hg] [facility] Body Weight 2018-10-10 00:00:00 2546 [oz_av] [facility] BP Diastolic 2018-09-30 00:00:00 65 mm[Hg] [facility] Height 2018-09-30 00:00:00 67 [in_i] [facility] BMI (Body Mass 2018-09-30 00:00:00 24.3 kg/m2 [facility] closer Medical Index) Group BP Systolic 2018-09-30 00:00:00 138 mm[Hg] [facility] Body Weight 2018-09-30 00:00:00 155 [lb_av] [facility] BP Diastolic 2018-08-30 00:00:00 76 mm[Hg] [facility] Height 2018-08-30 00:00:00 67 [in_i] [facility] BMI (Body Mass 2018-08-30 00:00:00 24.2 kg/m2 [facility] top closer Medical Index) Group BP Systolic 2018-08-30 00:00:00 134 mm[Hg] [facility] Body Weight 2018-08-30 00:00:00 154.6 [lb_av] [facility] BP Diastolic 2018-06-19 00:00:00 80 mm[Hg] [facility] Height 2018-06-19 00:00:00 67 [in_i] [facility] BMI (Body Mass 2018-06-19 00:00:00 24.2 kg/m2 [facility] Medical Index) Group BP Systolic 2018-06-19 00:00:00 140 mm[Hg] [facility] Body Weight 2018-06-19 00:00:00 2468 [oz_av] [facility] Procedures Procedure Date / Time Performing Clinician Source Performed MAMMO, screening, digital, 2018-09-30 00:00:00 [facility] bilateral Group Colonoscopy Thru Stoma Spx 2013-11-02 00:00:00 [facility] Egd 2013-11-02 00:00:00 Puja Harper dical Group Rpr Ventral Laura Init 2013-03-14 00:00:00 Aravind mckeon [facility] Reduc Group Cholecystectomy 2012-06-04 00:00:00 Puja Esparza [facility] Anesth Repair of Hernia 2012-06-04 00:00:00 [facility] Hernia Repair 2012-06-04 00:00:00 [facility] Harper d[facility] Group Hernia Repair W/mesh 2010-06-04 00:00:00 Emmanuel cam [facility] Cholecystectomy 2010-06-04 00:00:00 Puja Harper dical Group Total Hysterectomy 1985-06-04 00:00:00 [facility] Total Hysterectomy 1984-06-04 00:00:00 [facility] Encounters Start End Encounter Admission Attending Care Care Encounter Source Date/Time Date/Time Type Type Clinicians Facility Department ID 2020-02-03 2020-02-03 Outpatient E [facility] [id number] [facility] 16:36:00 17:10:00 [facility] 2020-01-27 2020-01-27 Outpatient E ARELLANO, [facility] [id number] [facility] 19:47:00 20:57:00 [facility] 2020-01-27 2020-01-27 Krista ARAUZ - [id number] [place] 00:00:00 00:00:[address] SWEEPER OPERATOR: 1700 [facility] [place], [place] Expansion [facility] [address] h , Ph. Program 2020-01-21 2020-01-21 Ina [facility] [place] - [id number] M [facility] 00:00:00 00:00:00 [facility] Medica carlita MD: [address] [place] [address] [address], [place] [address] , Ph. [phone] 2019-11-30 2019-11-30 Outpatient E LIZET GUZMAN [facility] [id number] [facility] 08:58:00 11:25:00 [facility] 2019-10-18 2019-10-18 Whit Chavez [place] - [id number] [place] 00:00:00 00:00:[address] SWEEPER OPERATOR: 1700 [facility] [place], [place] Exp[facility] [address] h , Ph. Program 2019-09-28 2019-09-28 Outpatient E ARELLANO, [facility] [id number] [facility] 13:18:00 16:15:00 [facility] 2019-09-23 2019-09-23 Krista [facility] [place] - [id number] [place] 00:00:00 00:00:[address] SWEEPER OPERATOR: [address] [facility] [place] [address], [facility] [address] h , Ph. Program 2019-09-09 2019-09-09 Krista [facility] [place] - [id number] [place] 00:00:00 00:00:[address] SWEEPER OPERATOR: [address] [facility] [place] [address], [facility] [address] h , Ph. Program 2019-07-22 2019-07-22 Krista ARAUZ [place] - [id number] [place] 00:00:00 00:00:[address] SWEEPER OPERATOR: 17[address] [facility] [place] [address], [address] [address] Progr am , Ph. 2019-07-02 2019-07-02 Outpatient E SHEIKH [facility] [id number] [facility] 14:03:00 16:25:00 [facility] 2019-06-29 2019-06-29 Outpatient E NAVIN FUENTES [facility] [id number] [facility] 19:58:00 21:01:00 Medica l Center 2019-05-28 2019-05-28 Outpatient E ERWIN HAMILTON [facility] [id number] [facility] 11:31:00 12:50:00 Medica l Center 2019-05-05 2019-05-05 Outpatient E ADAN [facility] [id number] [facility] 04:52:00 05:08:00 [facility] 2019-05-02 2019-05-02 Outpatient E ARYA, [facility] [id number] [facility] 11:39:00 12:25:00 KATARZYNA [facility]ica l Center 2019-04-21 2019-04-21 Viry [facility] [place] - [id number] M at[facility]or 00:00:00 00:00:00 Bharti Jarrett Medical Medical STREET SWEEPER OPERATOR: [address] [facility] [address], [place] [address] , Ph. 2019-03-26 2019-03-26 Idalmisvictor hugo [facility] - [id number] [place] 00:00:00 00:00:[address] SWEEPER OPERATOR: 17[address] [facility] [address], [place] [address], [place] [address] Progr am , Ph. 2019-03-12 2019-03-12 Outpatient E NAVIN FUENTES [facility] [id number] [facility] 17:09:00 19:39:00 [facility] 2019-03-04 2019-03-04 Outpatient E SHELDON, [facility] [place] [facility] [id number] [facility] 14:31:00 15:25:00 [facility]USTO [facility] 2019-02-17 2019-02-17 [facility] - [id number] [place] 00:00:00 00:00:[address] SWEEPER OPERATOR: 1700 [employer] Episc op [facility] [place], [address] [place] [address] Progr am , Ph. 2019-01-22 2019-01-22 Outpatient E JOSELIN MENDEZ [facility] [id number] [facility] 19:30:00 [facility] 2018-10-30 2018-10-30 [facility] [place] - [id number] M [place] 00:00:00 00:00:00 Anika Triana Medica carlita MD: 600 [facility] [address], [place] [address] , Ph. [phone] 2018-10-10 2018-10-10 Ivone [facility] [place] - [id number] M [place] 00:00:00 00:00:[address] SWEEPER OPERATOR: 600 [facility] - [address], [facility], [place] [address] , Ph. 2018-09-30 2018-09-30 Ina [facility] [place] - [id number] M [place] 00:00:00 00:00:00 [facility] carlita MD: [address] [place] [address], [facility] [address], [place] [address] , Ph. [phone] 2018-08-30 2018-08-30 Altagracia Will [facility] [place] - [id number] [place] 00:00:00 00:00:00 Discovery tutu Freeman WHNP: 600 [facility] [address], [place] [address] , Ph. [phone] 2018-06-19 2018-06-19 Ivone [facility] [place] - [id number] M [place] 00:00:00 00:00:[address] SWEEPER OPERATOR: [address] [place] [address] 200, [place] [address] , Ph. 2018-05-28 2018-05-28 Outpatient Fede SHELDON [facility] [id number] [facility] 12:44:00 13:15:00 FAUSTO [facility] 2017-11-07 2017-11-07 Outpatient JOSELIN MONTELONGO [facility] [id number] [facility] 08:27:00 10:55:00 [facility] 2017-08-01 2017-08-01 Outpatient [facility] [id number] 20:21:00 20:21:00 [facility] Results Test Description Test Time Test Comments Results Result Comments Source THROAT CULTURE 2019-12-02 11:14:00 Test Item Value Reference Range Interpretation Comme nts Culture Observations (test code = COB1) NO BETA HEMOLY TIC STREPTOCOCCUS ISOLATED DIRECT STREP GROUP AOW2019-11-30 10:52:00 Test Item Value Reference Range Interpretation Comments STREP A AG (test code = STREP) NEGATIVE NEGATIVE DRUGS OF ABUSE*OW*2019-11-30 10:25:00 Test Item Value Reference Range Interpretation Comments DRUG SCRN (test code URINE DRUG SCREEN = HDOA) This is an unconfirmed screening result and should not be used for non-medical purposes PHENCYCLID (test Negative NEGATIVE code = GPCP) BENZODIAZE (test Negative NEGATIVE code = GBZO) COCAINE (test code = Negative NEGATIVE GCOC) AMPHETAMIN (test Negative NEGATIVE code = GAMP) THC (test code = Negative NEGATIVE GTHC) OPIATES (test code = Negative NEGATIVE CHARLES) BARBITURAT (test Negative NEGATIVE code = GBAR) TCA (test code = Positive NEGATIVE A GTCA) DOAH (test code = URINE DRUG DOAH) SCREEN CUT OFF VALUES Amphetamines 1000 ng/mL Barbituates 300 ng/mL Benzodiazepines 300 ng/mL Cocaine 300 ng/mL Opiates 300 ng/mL Phencyclidine 25 ng/mL THC 50 ng/mL Tricyclic Antidepressants 1000 ng/mL GENERAL CHEMISTRY 13 *OW* [id number] 10:25:00 Test Item Value Reference Range Interpretation Comments GLUCOSE (test code = GGUL) 86 mg/dL 73-118 BUN (test code = GBUN) 12 mg/dL 7-22 CREATININE (test code = GCRE) 1.2 mg/dL 0.6-1.2 URIC ACID (test code = GUA) 5.7 mg/dL 2.2-6.6 CALCIUM (test code = GCL+) 9.7 mg/dL 8.0-10.3 ALBUMIN (test code = GALB) 3.6 g/dL 3.5-5.5 PROTEIN (test code = GTP) 7.4 g/dL 6.4-8.1 ALT (test code = GALT) 12 U/L 10-47 AST (test code = DAWSON) 25 U/L 11-38 ALK PHOS (test code = GALP) 85 U/L 42-141 BILI TOTAL (test code = GTBIL) 0.4 mg/dL 0.2-1.6 GGT (test code = GGGT) 14 U/L 5-65 AMYLASE (test code = GAMY) 45 U/L 14-97 D-DIMER TRIAGE OW2019-11-30 10:09:00 Test Item Value Reference Range Interpretation Comments D-DIMER (test code = 335 ng/mL D-DU <=599 GDDI) D-DIMER COMMENT (test *Level to rule out code = DDCOM) DVT or PE: <235 ng/mL D-DU* BRAIN NATRIURETIC PEPTIDE OW2019-11-30 10:09:00 Test Item Value Reference Range Interpretation Comments BNP (test code = OBNP) 41 pg/mL <=100 TROPONIN I OW2019-11-30 10:08:00 Test Item Value Reference Range Interpretation Comments TROPONIN I (test code = A84) <0.050 ng/mL 0.000-0.050 MetyLyte 8 Panel *OW* [id number] 10:08:00 Test Item Value Reference Range Interpretation Comments GLUCOSE (test code = GGUL) 88 mg/dL 73-118 BUN (test code = GBUN) 11 mg/dL 7-22 CREATININE (test code = GCRE) 1.2 mg/dL 0.6-1.2 CK TOTAL (test code = GCK) 165 U/L 30-190 SODIUM (test code = GNA+) 140 mmol/L 128-145 POTASSIUM (test code = GK+) 3.5 mmol/L 3.6-5.1 L CHLORIDE (test code = GCL-) 105 mmol/L 98-108 TCO2 (test code = GTC02) 28 mmol/L 18-33 CBC (INCLUDES AUTOMATED DIFFERENTIAL) *2019-11-30 09:53:00 Test Item Value Reference Range Interpretation Comments WBC (test code = WBC) 5.9 10\S\3/uL 4.5-11.0 RBC (test code = RBC) 4.24 10\S\6/uL 3.80-5.80 HGB (test code = HBG) 11.5 g/dL 12.0-15.5 L HCT (test code = HCT) 37.1 % 35.0-44.0 MCV (test code = MCV) 87.6 fL 81.0-99.0 MCH (test code = MCH) 27.1 pg 27.0-31.0 MCHC (test code = MCHC) 31.0 g/dL 32.0-36.0 L RDW (test code = RDW) 14.8 % 11.5-14.5 H PLT (test code = PLT) 270 10\S\3/uL 130-400 MPV (test code = OMPV) 8.6 fL 6.2-10.2 NEUTROP # (test code = NE#) 3.5 10\S\3/uL 1.6-8.0 LYMPH # (test code = LY#) 1.7 10\S\3/uL 1.1-3.5 MID # (test code = GMID#) 0.6 10\S\3/uL 0.0-1.1 GRA % (test code = GRA%) 60.0 % 35.0-73.0 LYMPH % (test code = GLY%) 29.0 % 20.0-55.0 MID % (test code = GMID%) 11.0 % 0.0-10.0 H URINALYSIS W/O MICROSCOPICOW2019-11-30 09:52:00 Test Item Value Reference Range Interpretation Comments COLOR (test code = Yellow YELLOW COLU) CLARITY (test code = Clear CLEAR CLA) GLUCOSE UR (test Negative NEGATIVE code = UA GLUCOSE) BILI UR (test code = Negative NEGATIVE BILE) KETONES UR (test Negative NEGATIVE code = AMIRAH) SP GRAVITY (test 1.010 1.005-1.030 code = SPGR) PH UR (test code = 6.0 4.5-8.0 PH) PROTEIN UR (test Negative NEGATIVE code = PU) NITRITE UR (test Negative NEGATIVE code = NITRITE) UROBIL UR (test code 0.2 E.U./dL = GUROQ) UROBIL UR (test code UROBILINOGEN = GUROQC) REFERENCE RANGE 0.2 - 1.0 EU/dL BLOOD UR (test code Negative NEGATIVE = UA BLOOD) LEUK ES UR (test 1+ NEGATIVE A code = LEUK) URINALYSIS W/O MICROSCOPICOW2019-09-28 14:59:00 Test Item Value Reference Range Interpretation Comments COLOR (test code = Yellow YELLOW COLU) CLARITY (test code = Clear CLEAR CLA) GLUCOSE UR (test Negative NEGATIVE code = UA GLUCOSE) BILI UR (test code = Negative NEGATIVE BILE) KETONES UR (test Negative NEGATIVE code = AMIRAH) SP GRAVITY (test 1.020 1.005-1.030 code = SPGR) PH UR (test code = 6.0 4.5-8.0 PH) PROTEIN UR (test Negative NEGATIVE code = PU) NITRITE UR (test Negative NEGATIVE code = NITRITE) UROBIL UR (test code 0.2 E.U./dL = GUROQ) UROBIL UR (test code UROBILINOGEN = GUROQC) REFERENCE RANGE 0.2 - 1.0 EU/dL BLOOD UR (test code Negative NEGATIVE = UA BLOOD) LEUK ES UR (test 1+ NEGATIVE A code = LEUK) GENERAL CHEMISTRY 13 *OW* [id number] 14:45:00 Test Item Value Reference Range Interpretation Comments GLUCOSE (test code = GGUL) 128 mg/dL 73-118 H BUN (test code = GBUN) 27 mg/dL 7-22 H CREATININE (test code = GCRE) 1.5 mg/dL 0.6-1.2 H URIC ACID (test code = GUA) 6.1 mg/dL 2.2-6.6 CALCIUM (test code = GCL+) 9.0 mg/dL 8.0-10.3 ALBUMIN (test code = GALB) 3.5 g/dL 3.5-5.5 PROTEIN (test code = GTP) 7.8 g/dL 6.4-8.1 ALT (test code = GALT) 16 U/L 10-47 AST (test code = DAWSON) 29 U/L 11-38 ALK PHOS (test code = GALP) 98 U/L 42-141 BILI TOTAL (test code = GTBIL) 0.6 mg/dL 0.2-1.6 GGT (test code = GGGT) 16 U/L 5-65 AMYLASE (test code = GAMY) 83 U/L 14-97 MetyLyte 8 Panel *OW* [id number] 14:36:00 Test Item Value Reference Range Interpretation Comments GLUCOSE (test code = GGUL) 128 mg/dL 73-118 H BUN (test code = GBUN) 27 mg/dL 7-22 H CREATININE (test code = GCRE) 1.3 mg/dL 0.6-1.2 H CK TOTAL (test code = GCK) 272 U/L 30-190 H SODIUM (test code = GNA+) 140 mmol/L 128-145 POTASSIUM (test code = GK+) 3.9 mmol/L 3.6-5.1 CHLORIDE (test code = GCL-) 103 mmol/L 98-108 TCO2 (test code = GTC02) 26 mmol/L 18-33 CBC (INCLUDES AUTOMATED DIFFERENTIAL) *2019-09-28 14:35:00 Test Item Value Reference Range Interpretation Comments WBC (test code = WBC) 8.8 10\S\3/uL 4.5-11.0 RBC (test code = RBC) 4.40 10\S\6/uL 3.80-5.80 HGB (test code = HBG) 11.8 g/dL 12.0-15.5 L HCT (test code = HCT) 37.5 % 35.0-44.0 MCV (test code = MCV) 85.3 fL 81.0-99.0 MCH (test code = MCH) 26.8 pg 27.0-31.0 L MCHC (test code = MCHC) 31.5 g/dL 32.0-36.0 L RDW (test code = RDW) 15.1 % 11.5-14.5 H PLT (test code = PLT) 306 10\S\3/uL 130-400 MPV (test code = OMPV) 8.3 fL 6.2-10.2 NEUTROP # (test code = NE#) 6.2 10\S\3/uL 1.6-8.0 LYMPH # (test code = LY#) 1.9 10\S\3/uL 1.1-3.5 MID # (test code = GMID#) 0.7 10\S\3/uL 0.0-1.1 GRA % (test code = GRA%) 70.4 % 35.0-73.0 LYMPH % (test code = GLY%) 21.2 % 20.0-55.0 MID % (test code = GMID%) 8.4 % 0.0-10.0 URINALYSIS W/O MICROSCOPICOW2019-07-02 15:41:00 Test Item Value Reference Range Interpretation Comments COLOR (test code = Yellow YELLOW COLU) CLARITY (test code = Clear CLEAR CLA) GLUCOSE UR (test Negative NEGATIVE code = UA GLUCOSE) BILI UR (test code = Negative NEGATIVE BILE) KETONES UR (test Negative NEGATIVE code = AMIRAH) SP GRAVITY (test 1.010 1.005-1.030 code = SPGR) PH UR (test code = 6.5 4.5-8.0 PH) PROTEIN UR (test Negative NEGATIVE code = PU) NITRITE UR (test Negative NEGATIVE code = NITRITE) UROBIL UR (test code 0.2 E.U./dL = GUROQ) UROBIL UR (test code UROBILINOGEN = GUROQC) REFERENCE RANGE 0.2 - 1.0 EU/dL BLOOD UR (test code Negative NEGATIVE = UA BLOOD) LEUK ES UR (test Negative NEGATIVE code = LEUK) GENERAL CHEMISTRY 13 *OW* [id number] 15:08:00 Test Item Value Reference Range Interpretation Comments GLUCOSE (test code = GGUL) 109 mg/dL 73-118 BUN (test code = GBUN) 13 mg/dL 7-22 CREATININE (test code = GCRE) 1.4 mg/dL 0.6-1.2 H URIC ACID (test code = GUA) 5.0 mg/dL 2.2-6.6 CALCIUM (test code = GCL+) 8.6 mg/dL 8.0-10.3 ALBUMIN (test code = GALB) 3.5 g/dL 3.5-5.5 PROTEIN (test code = GTP) 7.2 g/dL 6.4-8.1 ALT (test code = GALT) 23 U/L 10-47 AST (test code = DAWSON) 41 U/L 11-38 H ALK PHOS (test code = GALP) 78 U/L 42-141 BILI TOTAL (test code = GTBIL) 0.6 mg/dL 0.2-1.6 GGT (test code = GGGT) 18 U/L 5-65 AMYLASE (test code = GAMY) 46 U/L 14-97 MetyLyte 8 Panel *OW* [id number] 14:54:00 Test Item Value Reference Range Interpretation Comments GLUCOSE (test code = GGUL) 111 mg/dL 73-118 BUN (test code = GBUN) 14 mg/dL 7-22 CREATININE (test code = GCRE) 1.4 mg/dL 0.6-1.2 H CK TOTAL (test code = GCK) 157 U/L 30-190 SODIUM (test code = GNA+) 133 mmol/L 128-145 POTASSIUM (test code = GK+) 3.4 mmol/L 3.6-5.1 L CHLORIDE (test code = GCL-) 105 mmol/L 98-108 TCO2 (test code = GTC02) 26 mmol/L 18-33 CBC (INCLUDES AUTOMATED DIFFERENTIAL) *2019-07-02 14:43:00 Test Item Value Reference Range Interpretation Comments WBC (test code = WBC) 6.3 10\S\3/uL 4.5-11.0 RBC (test code = RBC) 4.05 10\S\6/uL 3.80-5.80 HGB (test code = HBG) 10.5 g/dL 12.0-15.5 L HCT (test code = HCT) 34.4 % 35.0-44.0 L MCV (test code = MCV) 84.9 fL 81.0-99.0 MCH (test code = MCH) 25.9 pg 27.0-31.0 L MCHC (test code = MCHC) 30.5 g/dL 32.0-36.0 L RDW (test code = RDW) 13.9 % 11.5-14.5 PLT (test code = PLT) 220 10\S\3/uL 130-400 MPV (test code = OMPV) 8.7 fL 6.2-10.2 NEUTROP # (test code = NE#) 4.7 10\S\3/uL 1.6-8.0 LYMPH # (test code = LY#) 1.1 10\S\3/uL 1.1-3.5 MID # (test code = GMID#) 0.5 10\S\3/uL 0.0-1.1 GRA % (test code = GRA%) 74.2 % 35.0-73.0 H LYMPH % (test code = GLY%) 17.5 % 20.0-55.0 L MID % (test code = GMID%) 8.3 % 0.0-10.0 URINALYSIS W/O MICROSCOPICOW2019-06-29 20:37:00 Test Item Value Reference Range Interpretation Comments COLOR (test code = Yellow YELLOW COLU) CLARITY (test code = SLT HAZY CLEAR A CLA) GLUCOSE UR (test Negative NEGATIVE code = UA GLUCOSE) BILI UR (test code = Negative NEGATIVE BILE) KETONES UR (test Negative NEGATIVE code = AMIRAH) SP GRAVITY (test 1.020 1.005-1.030 code = SPGR) PH UR (test code = 6.5 4.5-8.0 PH) PROTEIN UR (test Negative NEGATIVE code = PU) NITRITE UR (test Negative NEGATIVE code = NITRITE) UROBIL UR (test code 0.2 E.U./dL = GUROQ) UROBIL UR (test code UROBILINOGEN = GUROQC) REFERENCE RANGE 0.2 - 1.0 EU/dL BLOOD UR (test code Negative NEGATIVE = UA BLOOD) LEUK ES UR (test Trace NEGATIVE code = LEUK) INFLUENZA A AND B OW2019-06-29 20:34:00 Test Item Value Reference Range Interpretation Comments INFLUENZ A (test code = INFA) NEGATIVE NEGATIVE INFLUENZ B (test code = INFB) NEGATIVE NEGATIVE DIRECT STREP GROUP AOW2019-06-29 20:34:00 Test Item Value Reference Range Interpretation Comments STREP A AG (test code = STREP) NEGATIVE NEGATIVE XR ABDOMEN AP 1 VIEW EA *OW*2019-05-28 12:23:26Location code: R [id number]: Nausea vomitingComparison: None.Findings:Surgical clips in the right upper quadrant postcholecystectomy. Small densityin left pelvis may represent surgical clips. Correlate clinically.Organ silhouettes are unremarkable.Intestinal gas pattern is normal.Bone is unremarkable for patient age.No abnormal masses or calcifications seen.Impression: 1. No evidence of acute pathology.TROPONIN I OW2019-05-28 12:21:00 Test Item Value Reference Range Interpretation Comments TROPONIN I (test code = A84) <0.050 ng/mL 0.000-0.050 MetyLyte 8 Panel *OW* [id number] 12:07:00 Test Item Value Reference Range Interpretation Comments GLUCOSE (test code = GGUL) 110 mg/dL 73-118 BUN (test code = GBUN) 11 mg/dL 7-22 CREATININE (test code = GCRE) 1.0 mg/dL 0.6-1.2 CK TOTAL (test code = GCK) 175 U/L 30-190 SODIUM (test code = GNA+) 142 mmol/L 128-145 POTASSIUM (test code = GK+) 3.9 mmol/L 3.6-5.1 CHLORIDE (test code = GCL-) 107 mmol/L 98-108 TCO2 (test code = GTC02) 26 mmol/L 18-33 URINALYSIS W/O MICROSCOPICOW2019-05-28 12:00:00 Test Item Value Reference Range Interpretation Comments COLOR (test code = Yellow YELLOW COLU) CLARITY (test code = Clear CLEAR CLA) GLUCOSE UR (test Negative NEGATIVE code = UA GLUCOSE) BILI UR (test code = Negative NEGATIVE BILE) KETONES UR (test Negative NEGATIVE code = AMIRAH) SP GRAVITY (test 1.015 1.005-1.030 code = SPGR) PH UR (test code = 6.0 4.5-8.0 PH) PROTEIN UR (test Negative NEGATIVE code = PU) NITRITE UR (test Negative NEGATIVE code = NITRITE) UROBIL UR (test code 0.2 E.U./dL = GUROQ) UROBIL UR (test code UROBILINOGEN = GUROQC) REFERENCE RANGE 0.2 - 1.0 EU/dL BLOOD UR (test code Negative NEGATIVE = UA BLOOD) LEUK ES UR (test 1+ NEGATIVE A code = LEUK) CBC (INCLUDES AUTOMATED DIFFERENTIAL) *2019-05-28 11:58:00 Test Item Value Reference Range Interpretation Comments WBC (test code = WBC) 6.0 10\S\3/uL 4.5-11.0 RBC (test code = RBC) 4.72 10\S\6/uL 3.80-5.80 HGB (test code = HBG) 12.4 g/dL 12.0-15.5 HCT (test code = HCT) 40.3 % 35.0-44.0 MCV (test code = MCV) 85.3 fL 81.0-99.0 MCH (test code = MCH) 26.3 pg 27.0-31.0 L MCHC (test code = MCHC) 30.8 g/dL 32.0-36.0 L RDW (test code = RDW) 14.2 % 11.5-14.5 PLT (test code = PLT) 305 10\S\3/uL 130-400 MPV (test code = OMPV) 9.0 fL 6.2-10.2 NEUTROP # (test code = NE#) 3.9 10\S\3/uL 1.6-8.0 LYMPH # (test code = LY#) 1.6 10\S\3/uL 1.1-3.5 MID # (test code = GMID#) 0.6 10\S\3/uL 0.0-1.1 GRA % (test code = GRA%) 64.5 % 35.0-73.0 LYMPH % (test code = GLY%) 26.0 % 20.0-55.0 MID % (test code = GMID%) 9.5 % 0.0-10.0 TROPONIN I OW2019-05-02 12:17:00 Test Item Value Reference Range Interpretation Comments TROPONIN I (test code = A84) 0.000 ng/mL 0.000-0.045 XR CHEST 1 VIEW PORTABLE *OW*2019-05-02 12:11:01EXAM: XR CHEST 1 VIEW PORTABLE *OW*.LOCATION: .HISTORY: [id number]: Cough.COMPARISON: Radiograph dated 03/12/19.TECHNIQUE: Single AP view of the chest was obtained. FINDINGS:The heart is enlarged in size. Mild linear bibasilar opacities are present. Noacute osseous abnormality is identified.IMPRESSION:Cardiomegaly with mild bibasilar opacities, likely representing atelectasis.CHEM8+ i-STAT OW2019-05-02 12:08:00 Test Item Value Reference Range Interpretation Comments SODIUM (test code = CORINE) 139 mmol/L 138-146 POTASSIUM (test code = KI) 3.8 mmol/L 3.5-4.9 CHLORIDE (test code = CLI) 105 mmol/L 98-109 CA IONIZED (test code = ICAI) 1.17 mmol/L 1.12-1.32 GLUCOSE (test code = GLUI) 114 mg/dL 75-100 H TCO2 (test code = TCO2) 26 mmol/L 24-29 BUN (test code = BUN1) 14 mg/dL 8-26 CREATININE (test code = CREAI) 1.3 mg/dL 0.6-1.3 ANION GAP (test code = GANG) 13.0 mmol/L HGB (test code = MHB) 12.6 g/dL 12.0-17.0 HCT (test code = MHCT) 37.0 % 38.0-51.0 L XR CHEST 2 VIEW *OW*2019-03-12 18:22:11Location code:A 1Chest two views frontal and lateralIndication: [id number]: Cough.Comparison: none.Find ings:Cardiomegaly.Costophrenic angles are clear.Small discoid atelectasis at the right base.Bone is unremarkable for age.Impression:1. Cardiomegaly.2. Small discoid atelectasis at the right base..CT ABDOMEN AND PELVIS W/O CONTRAST *OW* 2019-01-22 18:47:12LOCATION: [id number]: 68-year-old female who presents with diarrhea.COMMENT: Axial CT imaging of this patient's abdomen and pelvis was obtained without IVcontrast. Coronal and sagittal soft tissue reconstructions were included. An older examination of 11/07/17 is available for comparison.One or more of the following dose reduction techniques are used: Automatedexposure control, adjustment of the mA and/or kV according the patient size,and/or utilization of iterative reconstruction technique.DLP: 1079.58 mGy-cmCONTRAST: NoneFINDINGS:The lung bases are clear. Mild, generalized cardiac enlargement is again seenand is unchanged.The liver, spleen, pancreas, adrenal glands, and kidneys exhibit no acutefindings. Again seen is a tiny cortical cyst in the midpole of the left kidney.Cholecystectomy clips are noted.The upper intestinal tract and the small intestine are unremarkable. Theappendix is not seen but there are no secondary signs of appendicitis. Thereare no acute findings in the colon. Diverticulosis is again seen in the lefthemicolon.No ascites is seen and no adenopathy is present.In the pelvis the urinary bladder is unremarkable. The uterus is not seen ineither ovary is seen.The vascular anatomy exhibits no acute findings.The musculoskeletal anatomy exhibits no acute findings. Degenerative disease iswidespread in the lumbar spine.IMPRESSION:There are no acute findings seen in this patient's abdomen or pelvis on thisunenhanced CT examination.Again seen is diverticulosis involving the left hemicolon.Mild, generalized cardiac enlargement is unchanged.CBC (INCLUDES AUTOMATED DIFFERENTIAL) *2019-01-22 17:56:00 Test Item Value Reference Range Interpretation Comments WBC (test code = WBC) 8.2 10\S\3/uL 4.5-11.0 RBC (test code = RBC) 4.24 10\S\6/uL 3.80-5.80 HGB (test code = HBG) 11.3 g/dL 12.0-15.5 L HCT (test code = HCT) 36.0 % 35.0-44.0 MCV (test code = MCV) 85.0 fL 81.0-99.0 MCH (test code = MCH) 26.7 pg 27.0-31.0 L MCHC (test code = MCHC) 31.4 g/dL 32.0-36.0 L RDW (test code = RDW) 14.3 % 11.5-14.5 PLT (test code = PLT) 305 10\S\3/uL 130-400 MPV (test code = OMPV) 8.3 fL 6.2-10.2 NEUTROP # (test code = NE#) 5.3 10\S\3/uL 1.6-8.0 LYMPH # (test code = LY#) 2.2 10\S\3/uL 1.1-3.5 MID # (test code = GMID#) 0.7 10\S\3/uL 0.0-1.1 GRA % (test code = GRA%) 64.9 % 35.0-73.0 LYMPH % (test code = GLY%) 26.4 % 20.0-55.0 MID % (test code = GMID%) 8.7 % 0.0-10.0 CHEM8+ i-STAT OW2019-01-22 17:56:00 Test Item Value Reference Range Interpretation Comments SODIUM (test code = CORINE) 139 mmol/L 138-146 POTASSIUM (test code = KI) 4.1 mmol/L 3.5-4.9 CHLORIDE (test code = CLI) 106 mmol/L 98-109 CA IONIZED (test code = ICAI) 1.21 mmol/L 1.12-1.32 GLUCOSE (test code = GLUI) 90 mg/dL 75-100 TCO2 (test code = TCO2) 30 mmol/L 24-29 H BUN (test code = BUN1) 19 mg/dL 8-26 CREATININE (test code = CREAI) 1.3 mg/dL 0.6-1.3 ANION GAP (test code = GANG) 8.0 mmol/L HGB (test code = MHB) 11.9 g/dL 12.0-17.0 L HCT (test code = MHCT) 35.0 % 38.0-51.0 L URINALYSIS W/O MICROSCOPICOW2019-01-22 17:56:00 Test Item Value Reference Range Interpretation Comments COLOR (test code = Yellow YELLOW COLU) CLARITY (test code = Clear CLEAR CLA) GLUCOSE UR (test Negative NEGATIVE code = UA GLUCOSE) BILI UR (test code = Negative NEGATIVE BILE) KETONES UR (test Negative NEGATIVE code = AMIRAH) SP GRAVITY (test 1.015 1.005-1.030 code = SPGR) PH UR (test code = 6.5 4.5-8.0 PH) PROTEIN UR (test Negative NEGATIVE code = PU) NITRITE UR (test Negative NEGATIVE code = NITRITE) UROBIL UR (test code 1.0 E.U./dL = GUROQ) UROBIL UR (test code UROBILINOGEN = GUROQC) REFERENCE RANGE 0.2 - 1.0 EU/dL BLOOD UR (test code Negative NEGATIVE = UA BLOOD) LEUK ES UR (test Trace NEGATIVE code = LEUK) [id number] 22:39:42 Test Item Value Reference Range Interpretation Comments RBC Morph (test code = RBC As Indicated Normal A Morph) Anisocyte (test code = None None Anisocyte) Hypochromia (test code = 1+ None Seen Hypochromia) Microcyte (test code = None Seen None Seen Microcyte) Macrocyte (test code = None Seen None Seen Macrocyte) Poik (test code = Poik) None Seen None Seen Polychrom (test code = None Seen None Seen Polychrom) Acanthocyte (test code = None Seen None Seen Acanthocyte) Baso Stippling RBC (test code = None Seen None Seen Baso Stippling RBC) Plt Estimation (test code = Plt Normal Normal Estimation) Complete Blood Count with [id number] 22:39:19 Test Item Value Reference Range Interpretation Comments WBC (test code = WBC) 7.1 x10 4.4-10.5 RBC (test code = RBC) 4.12 x10 3.75-5.20 Hgb (test code = Hgb) 11.1 g/dL 12.2-14.8 L MCV (test code = MCV) 86.40 fL 80.00-100.00 Hct (test code = Hct) 35.6 % 36.5-44.4 L MCHC (test code = 31.20 g/dL 32.00-37.50 L MCHC) RDW CV (test code = 14.3 % 11.5-14.5 RDW CV) MCH (test code = MCH) 26.9 pg 27.0-32.5 L Platelets (test code = 256.0 x10 140.0-440.0 Platelets) MPV (test code = MPV) 11.6 fL N Slide Review (test Smear Auto A Result cr eated by code = Slide Review) GL_SJM_ SLIDE_REV_AUTO GL_SJM_XN_RFLX GL_SJM_XN_RFLX GL_SJM_XN_RFLX GL_SJM_XN_RFLX nRBC (test code = 0 N nRBC) NRBC Abs (test code = 0.00 x10 N NRBC Abs) IPF (test code = IPF) 3 % N Automated [id number] 22:39:19 Test Item Value Reference Range Interpretation Comments Neutro Auto (test code = Neutro 57.7 % 36.0-70.0 Auto) Lymph Auto (test code = Lymph Auto) 32.7 % 12.0-44.0 [place] Auto (test code = [place] Auto) 8.2 % 0.0-11.0 Eos, Auto (test code = Eos, Auto) 0.8 % 0.0-7.0 Basophil Auto (test code = Basophil 0.3 % 0.0-2.0 Auto) Neutro Absolute (test code = Neutro 4.1 x10 1.6-7.4 Absolute) Lymph Absolute (test code = Lymph 2.31 x10 .50-4.60 Absolute) [place] Absolute (test code = [place] .58 x10 .00-1.20 Absolute) Eos Absolute (test code = Eos 0.06 x10 0.00-0.74 Absolute) Baso Absolute (test code = Baso 0.02 x10 0.00-0.21 Absolute) IG [id number] 22:39:19 Test Item Value Reference Range Interpretation Comments IG (test code = IG) 0.3 % 0.0-5.0 IG Abs (test code = IG Abs) 0 x10 N Complete Blood Count with [id number] 22:39:19 Test Item Value Reference Range Interpretation Comments WBC (test code = WBC) 7.1 x10 4.4-10.5 RBC (test code = RBC) 4.12 x10 3.75-5.20 Hgb (test code = Hgb) 11.1 g/dL 12.2-14.8 L MCV (test code = MCV) 86.40 fL 80.00-100.00 Hct (test code = Hct) 35.6 % 36.5-44.4 L MCHC (test code = 31.20 g/dL 32.00-37.50 L MCHC) RDW CV (test code = 14.3 % 11.5-14.5 RDW CV) MCH (test code = MCH) 26.9 pg 27.0-32.5 L Platelets (test code = 256.0 x10 140.0-440.0 Platelets) MPV (test code = MPV) 11.6 fL N Slide Review (test Smear Auto A Result cr eated by code = Slide Review) GL_SJM_ SLIDE_REV_AUTO GL_SJM_XN_RFLX GL_SJM_XN_RFLX GL_SJM_XN_RFLX GL_SJM_XN_RFLX nRBC (test code = 0 N nRBC) NRBC Abs (test code = 0.00 x10 N NRBC Abs) Pos Count XN (test A N code = Pos Count XN) IPF (test code = IPF) 3 % N Comprehensive Metabolic [id number] 22:04:08 Test Item Value Reference Range Interpretation Comments Sodium Level (test code = Sodium 142.0 mmol/L 135.0-145.0 Level) Potassium Level (test code = 4.7 mmol/L 3.5-5.1 Potassium Level) Chloride Level (test code = 104 mmol/L 98-105 Chloride Level) CO2 (test code = CO2) 24 mmol/L 22-29 Anion Gap (test code = Anion 14 mmol/L 7-16 Gap) BUN (test code = BUN) 21.60 mg/dL 8.00-23.00 Creatinine Level (test code = 1.30 mg/dL 0.50-0.90 H Creatinine Level) BUN/Creat Ratio (test code = 17 N BUN/Creat Ratio) Glucose Level (test code = 84 mg/dL 70-115 Glucose Level) Calcium Level (test code = 9.4 mg/dL 8.3-10.5 Calcium Level) Alk Phos (test code = Alk Phos) 118 U/L 35-104 H Bilirubin Total (test code = <0.1 mg/dL 0.1-0.9 Bilirubin Total) Albumin Level (test code = 4.3 g/dL 3.5-5.2 Albumin Level) Protein Total (test code = 7.3 g/dL 6.4-8.3 Protein Total) ALT (test code = ALT) 11 U/L 1-33 AST (test code = AST) 18 U/L 1-32 Globulin (test code = Globulin) 3.0 g/dL 2.9-3.1 A/G Ratio (test code = A/G 1.4 ratio N Ratio) Comprehensive Metabolic [id number] 22:04:08 Test Item Value Reference Range Interpretation Comments Sodium Level (test 142.0 mmol/L 135.0-145.0 code = Sodium Level) Potassium Level 4.7 mmol/L 3.5-5.1 (test code = Potassium Level) Chloride Level (test 104 mmol/L 98-105 code = Chloride Level) CO2 (test code = 24 mmol/L 22-29 CO2) Anion Gap (test code 14 mmol/L 7-16 = Anion Gap) BUN (test code = 21.60 mg/dL 8.00-23.00 BUN) Creatinine Level 1.30 mg/dL 0.50-0.90 H (test code = Creatinine Level) BUN/Creat Ratio 17 N (test code = BUN/Creat Ratio) Glucose Level (test 84 mg/dL 70-115 code = Glucose Level) Calcium Level (test 9.4 mg/dL 8.3-10.5 code = Calcium Level) Alk Phos (test code 118 U/L 35-104 H = Alk Phos) Bilirubin Total <0.1 mg/dL 0.1-0.9 (test code = Bilirubin Total) Albumin Level (test 4.3 g/dL 3.5-5.2 code = Albumin Level) Protein Total (test 7.3 g/dL 6.4-8.3 code = Protein Total) ALT (test code = 11 U/L 1-33 ALT) AST (test code = 18 U/L 1-32 AST) Globulin (test code 3.0 g/dL 2.9-3.1 = Globulin) A/G Ratio (test code 1.4 ratio N = A/G Ratio) eGFR AA (test code = 50 mL/min/1.73 N eGFR (estimated eGFR AA) m2 Glomerular Filtration Rate ) is an estimated va lue, calculated from the patient's serum creatinine usin g the MDRD equation. It is NOT the patient 's actual GFR. The eGFR provides a more clinically usef ul measure of kidn ey disease than se rum creatinine alone.This calculation brigitte es sex and race in to account, if the information is provided. If th e race is not provided, and t he patient is -Roslyn n, multiply by 1.2 12. If sex is not provided, and t he patient is fema le, multiply by 0.7 42. Results for pat ients <18 years of ag e have not been validated by th e MDRD study and should be interpreted wit h caution. eGFR R esult Interpretation: eGFR > or = 60 is in the Normal RangeeGF R < 60 may mean kid stefanie diseaseeGFR < 1 5 may mean kidney failure Rang es recommended by the National Kidney Foundation, http://nkdep.ni h.gov Lipid [id number] 22:04:08 Test Item Value Reference Range Interpretation Comments Cholesterol Total 169 mg/dL 0-200 RISK OF HE ART (test code = DISEASEPublishe d by Cholesterol Total) [employer] Joan lyte Optimal Borderl ine Increased RiskC HOL <200 200-239 >2 40TRIG <150 150-199 >2 00HDL Male >60 <40H DL Female >60 <5 0LDL <100 130-159 >1 60LDL Near optimal is 100-129 Triglycerides (test 65 mg/dL 9-200 code = Triglycerides) HDL (test code = HDL) 74 mg/dL 50-60 H LDL (test code = LDL) 82 mg/dL 0-130 The eq uation being used in this calcula tion is LDL = (Chol - H DL) - (Trig / 5) VLDL (test code = 13 mg/dL 5-40 The equati on being used VLDL) in this calcula tion is VLDL = Trig / 5 Chol/HDL (test code = 2.3 ratio 0.0-4.4 Chol/HDL) LDL/HDL Ratio (test 1 N The equa tion being used code = LDL/HDL Ratio) in thi s calculation is LDL/HDL Ratio=L DL Calc/HDL Chol Comprehensive Metabolic [id number] 22:04:08 Test Item Value Reference Range Interpretation Comments Sodium Level (test 142.0 mmol/L 135.0-145.0 code = Sodium Level) Potassium Level 4.7 mmol/L 3.5-5.1 (test code = Potassium Level) Chloride Level (test 104 mmol/L 98-105 code = Chloride Level) CO2 (test code = 24 mmol/L 22-29 CO2) Anion Gap (test code 14 mmol/L 7-16 = Anion Gap) BUN (test code = 21.60 mg/dL 8.00-23.00 BUN) Creatinine Level 1.30 mg/dL 0.50-0.90 H (test code = Creatinine Level) BUN/Creat Ratio 17 N (test code = BUN/Creat Ratio) Glucose Level (test 84 mg/dL 70-115 code = Glucose Level) Calcium Level (test 9.4 mg/dL 8.3-10.5 code = Calcium Level) Alk Phos (test code 118 U/L 35-104 H = Alk Phos) Bilirubin Total <0.1 mg/dL 0.1-0.9 (test code = Bilirubin Total) Albumin Level (test 4.3 g/dL 3.5-5.2 code = Albumin Level) Protein Total (test 7.3 g/dL 6.4-8.3 code = Protein Total) ALT (test code = 11 U/L 1-33 ALT) AST (test code = 18 U/L 1-32 AST) Globulin (test code 3.0 g/dL 2.9-3.1 = Globulin) A/G Ratio (test code 1.4 ratio N = A/G Ratio) eGFR AA (test code = 50 mL/min/1.73 N eGFR (estimated eGFR AA) m2 Glomerular Filtration Rate ) is an estimated va lue, calculated from the patient's serum creatinine usin g the MDRD equation. It is NOT the patient 's actual GFR. The eGFR provides a more clinically usef ul measure of kidn ey disease than se rum creatinine alone.This calculation brigitte es sex and race in to account, if the information is provided. If th e race is not provided, and t he patient is -Roslyn n, multiply by 1.2 12. If sex is not provided, and t he patient is fema le, multiply by 0.7 42. Results for pat ients <18 years of ag e have not been validated by [facility] MDRD study and should be interpreted wit h caution. eGFR R esult Interpretation: eGFR > or = 60 is in the Normal RangeeGF R < 60 may mean kid stefanie diseaseeGFR < 1 5 may mean kidney failure Rang es recommended by the National Kidney Foundation, http://nkdep.ni h.gov eGFR Non-AA (test 40.86 N eGFR (blanquita mated code = eGFR Non-AA) mL/min/1.73 m2 Glomer ular Filtration Rate ) is an estimated va lue, calculated from the patient's serum creatinine usin g the MDRD equation. It is NOT the patient 's actual GFR. The eGFR provides a more clinically usef ul measure of kidn ey disease than se rum creatinine alone.This calculation brigitte es sex and race in to account, if the information is provided. If th e race is not provided, and t he patient is -Roslyn n, multiply by 1.2 12. If sex is not provided, and t he patient is fema le, multiply by 0.7 42. Results for pat ients <18 years of ag e have not been validated by [facility] MDRD study and should be interpreted wit h caution. eGFR R esult Interpretation: eGFR > or = 60 is in the Normal RangeeGF R < 60 may mean kid stefanie diseaseeGFR < 1 5 may mean kidney failure Rang es recommended by the National Kidney Foundation, http://nkdep.ni h.gov Urinalysis macro (dipstick) panel - [id number] 14:55:00 Test Item Value Reference Range Interpretation Comments Leukocytes (test code = Leukocytes) Negative Nitrite (test code = Nitrite) negative Urobilinogen (test code = 1 Urobilinogen) Protein (test code = Protein) Negative pH (test code = pH) 7.0 Blood (test code = Blood) Negative Specific [place] (test code = 1.025 Specific [place]) Ketone (test code = Ketone) Negative Bilirubin (test code = Bilirubin) Negative Glucose (test code = Glucose) Negative Appearance (test code = Appearance) Clear Color (test code = Color) Yellow [facility]dipstick) panel - [id number] 14:55:00 Test Item Value Reference Range Interpretation Comments Leukocytes (test code = Leukocytes) Negative Nitrite (test code = Nitrite) negative Urobilinogen (test code = 1 Urobilinogen) Protein (test code = Protein) Negative pH (test code = pH) 7.0 Blood (test code = Blood) Negative Specific [place] (test code = 1.025 Specific [place]) Ketone (test code = Ketone) Negative Bilirubin (test code = Bilirubin) Negative Glucose (test code = Glucose) Negative Appearance (test code = Appearance) Clear Color (test code = Color) [facility] W Auto Differential panel - [id number] 11:29:00 Test Item Value Reference Range Interpretation Comments white blood count (test code = 5.2 K/uL 4.0-11.5 white blood count) red blood count (test code = red 4.42 M/uL 3.80-5.20 blood count) Hemoglobin [Mass/volume] in Blood 11.9 g/dL 10.5-15.7 (test code = 718-7) hematocrit (test code = hematocrit) 38.2 % 34.0-50.0 Erythrocyte mean corpuscular volume 86.5 fL 78-98 [Entitic volume] (test code = 36863-2) Erythrocyte mean corpuscular 26.9 pg 26.2-33.4 hemoglobin [Entitic mass] (test code = 78422-0) mean corpuscular HGB conc (test 31.1 g/dL 31.5-36.2 L code = mean corpuscular HGB conc) red cell distribution width (test 13.8 % 11.5-15.5 code = red cell distribution width) Platelets [#/volume] in Blood (test 271 K/uL 137-338 code = 37634-6) Platelet mean volume [Entitic 8.0 fL 8.4-11.8 L volume] in Blood (test code = 86030-9) Neutrophils.band form/100 53.2 % 44.4-80.1 leukocytes in Blood (test code = 95138-6) Lymphocytes/100 leukocytes in Body 35.1 % 10.0-50.0 fluid (test code = 39466-2) Monocytes/100 leukocytes in Blood 8.8 % 3.6-12.04 by Automated count (test code = 5905-5) Eosinophils/100 leukocytes in Blood 1.6 % 0.0-5.41 by Automated count (test code = 713-8) Basophils/100 leukocytes in Blood 1.3 % 0.0-0.79 H by Automated count (test code = 706-2) [facility], [id number] 11:29:00 NeutrophilsBandLymphocyteAtypical LymphMonocyteEosinophilBasophilPlatelet EstimatePlatelet MorphologyToxic GranulationSmudge CellsMa81st [facility] Comprehensive metabolic 2000 panel - Serum or [id number] 11:29:00 Test Item Value Reference Range Interpretation Comments Glucose [Mass/volume] in Serum or 97 mg/dL 82-115 Plasma (test code = 2345-7) Urea nitrogen [Mass/volume] in 18 mg/dL 8-23 Serum or Plasma (test code = 3094-0) Osmolality of Serum or Plasma 283 280-300 (test code = 2692-2) creatinine (test code = 1.6 mg/dL 0.50-0.90 H creatinine) glomerular filtration rate (test 39.02 L code = glomerular filtration rate) Urea nitrogen/Creatinine [Mass 11.3 12-20 L Ratio] in Serum or Plasma (test code = 3097-3) sodium level (test code = sodium 141 mmol/L 135-145 level) potassium level (test code = 4.2 mmol/L 3.5-5.2 potassium level) chloride level (test code = 105 mmol/L 98-108 chloride level) CO2 (test code = CO2) 24 mmol/L 21-32 anion gap (test code = anion gap) 16.2 mEq/L 12-20 calcium level (test code = calcium 9.5 mg/dL 8.8-10.2 level) total protein (test code = total 7.6 g/dL 6.6-8.7 protein) albumin (test code = albumin) 4.4 g/dL 3.5-5.2 globulin (test code = globulin) 3.2 gm/dL A/G ratio (test code = A/G ratio) 1.4 >1.0 bilirubin,total (test code = <0.3 0.0-1.2 bilirubin,total) AST/SGOT (test code = AST/SGOT) 23 U/L 15-32 Alanine aminotransferase 14 U/L 0-33 [Enzymatic activity/volume] in Serum or Plasma (test code = 1742-6) Alkaline phosphatase [Enzymatic 114 U/L 35-105 H activity/volume] in Serum or Plasma (test code = 6768-6) [facility]port[facility] [Moles/volume] in Unspecified specimen 2018-05-24 11:29:00 Test Item Value Reference Range Interpretation Comments magnesium level (test code = 1.9 mg/dL 1.6-2.4 magnesium level) [facility]portAmylase [Enzymatic activity/volume] in Serum or Plasma 2018-05-24 11:29:00 Test Item Value Reference Range Interpretation Comments Amylase [Enzymatic activity/volume] in 98 U/L 28-100 Serum or Plasma (test code = 1798-8) [facility]portLipase [Enzymatic activity/volume] in Serum or Plasma 2018-05-24 11:29:00 Test Item Value Reference Range Interpretation Comments Lipase [Enzymatic activity/volume] in 48 U/L 13-60 Serum or Plasma (test code = 3040-3) [facility]portUrinalysis complete panel - [id number] 02:05:00 Test Item Value Reference Range Interpretation Comments Color of Urine by Auto (test code yellow = 83539-8) Appearance of Urine (test code = clear clear 5767-9) Glucose [Presence] in Urine by negative negative Automated test strip (test code = 49293-1) Bilirubin.total [Mass/volume] in negative negative Urine (test code = 1978-6) Ketones [Mass/volume] in Urine by negative negative Automated test strip (test code = 29246-8) Specific gravity of Urine by 1.025 1.003-1.030 Automated test strip (test code = 12888-9) blood urine (test code = blood negative negative urine) pH of Urine (test code = 2756-5) 5.500 5-9 protein urine (UA) (test code = trace negative protein urine (UA)) Urobilinogen [Presence] in Urine normal 0.2-1.0 (test code = 34132-7) Nitrite [Presence] in Urine by negative negative Test strip (test code = 5802-4) Leukocyte esterase [Presence] in negative negative Urine by Automated test strip (test code = 13375-4) Erythrocytes [#/volume] in Urine =1-5 0-5 by Automated count (test code = 798-9) Leukocytes [#/area] in Urine =1-5 0-5 sediment by Automated count (test code = 34541-0) Epithelial cells [Presence] in =11-14 0-5 Urine sediment by Light microscopy (test code = 27730-7) Bacteria identified in Urine by trace none detect Culture (test code = 630-4) Casts [#/area] in Urine sediment hyaline 0-5 none detect by Automated count (test code = 23803-5) urine culture added? (test code = no urine culture added?) [facility] W/O CONTRAST *OW*2017-11-07 09:56:55CT abdomen and pelvis without contrastLocation Code: [id number] HISTORY: [id number]: Abdominal painCOMPARISON: NoneTechnique: Helical CT of the abdomen and pelvis was performed withoutintravenous contrast. Thin section axial, sagittal and coronal images wereobtained. One or more of the following dose red uction techniques were used:Automated exposure control, adjustment of the mA and or KV according to patientsize, and/or utilization of iterative reconstruction technique. DLP: 367.78mGy-cm.FINDINGS:Bibasilar atelectasis/fibrosis noted. Small sliding hiatal hernia is seen.The unenhanced liver, adrenal glands, kidneys, pancreas, and spleen areunremarkable. Previous cholecystectomy.Some mildly dilated loops of small bowel are present without evidence ofobstruction. Fluid-filled loops of small bowel andcolon seen. There is fairlyextensive diverticulosis of the sigmoid and descending colon with some minimalsurrounding inflammatory changes in the sigmoid which could represent earlydiverticulitis. No abscess or free air.The abdominal aorta is normal in caliber and contour. There is noretroperitoneal mass or fluid collection. The urinary bladder is unremarkable.There is no pelvic mass or fluid collection. No significant adenopathy.The bones, skin, and surrounding soft tissues are unremarkable except forcalcified disc protrusion measuring 5 mm at L5-S1. Diffuse spondylosis.IMPRESSION: 1. Fairly extensive diverticulosis of the descending and sigmoid colon withquestionable early diverticulitis of thesigmoid as detailed above. Mildsurrounding inflammatory changes.2. Ileus/enteritis type pattern without obstruction.3. Small sliding hiatal hernia with bibasilar interstitial fibrosis andcardiomegaly.CBC (INCLUDES AUTOMATED DIFFERENTIAL) *2017-11-07 09:04:00 Test Item Value Reference Range Interpretation Comments WBC (test code = WBC) 9.1 10\S\3/uL 4.5-11.0 RBC (test code = RBC) 4.17 10\S\6/uL 3.80-5.80 HGB (test code = HBG) 11.0 g/dL 12.0-15.5 L HCT (test code = HCT) 34.8 % 35.0-44.0 L MCV (test code = MCV) 83.4 fL 81.0-99.0 MCH (test code = MCH) 26.4 pg 27.0-31.0 L MCHC (test code = MCHC) 31.6 g/dL 32.0-36.0 L RDW (test code = RDW) 14.1 % 11.5-14.5 PLT (test code = PLT) 169 10\S\3/uL 130-400 MPV (test code = MPV) 8.5 fL 9.4-12.4 L NEUTROP # (test code = NE#) 5.1 10\S\3/uL 1.6-8.0 LYMPH # (test code = LY#) 3.4 10\S\3/uL 1.1-3.5 MID # (test code = GMID#) 0.6 10\S\3/uL 0.0-1.1 GRA % (test code = GRA%) 55.6 % 35.0-73.0 LYMPH % (test code = GLY%) 37.4 % 20.0-55.0 MID % (test code = GMID%) 7.0 % 0.0-10.0 Lipid [id number] 22:14:00 Test Item Value Reference Range Interpretation Comments Cholesterol (test 156 mg/dL 0-200 N code = CHOL) Triglycerides (test 193 mg/dL 9-200 N code = TRIG) HDL (test code = 53 mg/dL 50-60 N HDL) Chol/HDL (test code 2.9 Ratio 0.0-4.4 N = CHOLPHDL) LDL, Calculated 64 mg/dL 0-130 N (NOTE)RISK O F HEART (test code = LDLC) DISEASEPu blished by [employer] Heart AssociationAnal yte Optim al Boderline Increased RiskC HOL <200 200-239 >240TRI G <150 150-199 >200HDL Male: >60 <40HDL Female: >60 <50 LDL < 100 130-15 9 >160 LDL NEAR OPTIMAL IS 100- 129 VLDL (test code = 39 mg/dL 5-40 N VLDL) LDL/HDL (test code = 1 LDLPHDL)
[2020-02-11] MEDS ORDERED: NA CHLORIDE 0.9% 500 ML ONE (16:58)
[2020-02-11 17:04] LABS: Absolute Lymphocytes (CBC) 0.9 K/uL (0.7-4.9); Basophils % 0.3 % (0-1.3); Lymphocytes % 7.7 % (15.3-44.8); MPV 9.2 fL (7.6-11.3); RBC Red Blood Cell Count 4.23 M/uL (3.86-4.86)
[2020-02-11] MEDS ORDERED: ONDANSETRON 4 MG/2 ML VIAL ONE (17:08)
[2020-02-11 17:33] LABS: Bilirubin Direct 0.2 mg/dL (0-0.2); Bilirubin Total 0.4 mg/dL (0.2-1.0); Potassium 3.6 mmol/L (3.5-5.1); Protein, Total 6.7 g/dL (6.4-8.2)
[2020-02-11 18:14] LABS: Platelet Estimate ADEQ; White Blood Cell Scan OK (OK)
[2020-02-11 18:15] LABS: Blood Morphology Comment NOT SEEN (NOT SEEN)
--- NOTE | 2020-02-11 18:18 | RAD REPORT ---
EXAM DESCRIPTION: CT - Stone Protocol - 02/11/2020 5:58 pm CLINICAL HISTORY: Flank pain. abdominal pain, diarrhea COMPARISON: No comparisons TECHNIQUE: Axial images were obtained without oral or IV contrast. Lack of contrast limits solid org an and vascular assessment. The [id number] spans the entirety of the system partially obscuring uppermost abdomen and lung bases. Coronal reformatted images were obtained and reviewed. All CT scans are performed using dose optimization technique as appropriate and may include automated exposure control or mA/KV adjustment according to patient size. FINDINGS: Mild interstitial lung opacities are seen both lung bases trace pleural effusions. Imaged portions of the liver and spleen show no suspicious findings on non-contrast imaging.Cholecyst ectomy clips. The pancreas and adrenal glands are normal. No pathologic lymphadenopathy in the abdome n or pelvis. No urinary tract stones or obstructive uropathy. 14 mm cortically based lesion is noted mid aspect of the left kidney laterally, incompletely assessed due to lack of IV contrast. No bowel obstruction, free air, free fluid or abscess. Prominent sigmoid diverticulosis coli is prese nt without diverticulitis.The appendix is not identified as a discrete structure, however, no seconda ry findings of appendicitis are identified. Multilevel degenerative changes are present, with prominent posterior disc bulges at L2-3 and L5-S1. IMPRESSION: No urinary tract stones or obstructive uropathy. Nonspecific cortically based 14 mm lesion left kidney. Followup nonemergent evaluation with contrast- enhanced CT or MR may be useful. Interstitial opacities in the lung bases with trace pleural effusions. Suggest correlation for the po ssibility of viral bronchitis/COVID-19 infection. Prominent sigmoid diverticulosis coli without diverticulitis.
--- NOTE | 2020-02-11 19:05 | ER ---
Nurse's Notes [facility] Name: Sondra Ruelas Age: 69 yrs Sex: Female : 1950 Arrival Date: 02/11/2020 Time: 16:14 Bed 15 Private MD: Diagnosis: Diarrhea, unspecified Presentation: 02/10 16:18 Chief complaint: Patient states: Diffuse abdominal pain x 2 days, intermittent. ca1 Diarrhea x 3 days. Denies N/V. Coronavirus screen: Client denies travel out of the [place] in the last 14 days. At this time, the client does not indicate any symptoms associated with coronavirus-19. Ebola Screen: Patient negative for fever greater than or equal to 101.5 degrees Fahrenheit, and additional compatible Ebola Virus Disease symptoms Patient denies exposure to infectious person. Patient denies travel to an Ebola-affected area in the 21 days before illness onset. No symptoms or risks identified at this time. Initial Sepsis Screen: Does the patient meet any 2 criteria? No. Patient's initial sepsis screen is negative. Does the patient have a suspected source of infection? No. Patient's initial sepsis screen is negative. Risk Assessment: Do you want to hurt yourself or someone else? Patient reports no desire to harm self or others. Onset of symptoms was February 11, 2020. 16:18 Method Of Arrival: Ambulatory ca1 16:18 Acuity: ALIYN 3 ca1 Historical: - Allergies: 16:29 Bactrim; ca1 - Home Meds: 16:28 fluoxetine 20 mg Oral cap 1 cap once daily [Active]; amlodipine 5 mg tab 1 tab once tw2 daily [Active]; carvedilol 12.5 mg Oral tab 1 tab 2 times per day [Active]; cetirizine 10 mg Oral tab 1 tab once daily [Active]; clopidogrel 75 mg Oral tab 1 tab once daily [Active]; Dexilant 60 mg Oral CpDB 1 cap once daily [Active]; gemfibrozil 600 mg Oral tab 1 tab 2 times per day [Active]; Vitamin D Oral 29711 unit [Active]; - PMHx: 16:28 Diverticulitis; tw2 16:29 "leaky heart valve"; tw2 16:29 Anxiety; CAD; CKD; fatty liver; Hypertension; ADD/ADHD; ca1 17:38 GERD; tw2 - PSHx: 16:28 Cholecystectomy; Hysterectomy; tw2 - Immunization history:: Adult Immunizations Adult Immunizations up to date. - Social history:: Smoking status: Smoking status: Patient denies any tobacco usage or history of. Screenin:27 Abuse screen: Denies threats or abuse. Nutritional screening: No deficits noted. tw2 Tuberculosis screening: No symptoms or risk factors identified. Fall Risk None identified. Assessment: 16:16 General: Appears in no apparent distress. Behavior is calm, cooperative, appropriate tw2 for age. Pain: Complains of pain in abdomen. Neuro: Level of Consciousness is awake, alert, obeys commands, Oriented to person, place, time, situation. Cardiovascular: Heart tones S1 S2 Patient's skin is warm and dry. Respiratory: Airway is patent Respiratory effort is even, unlabored, Respiratory pattern is regular, symmetrical, Breath sounds are clear bilaterally. GI: Abdomen is round non-distended, Bowel sounds present X 4 quads. Abd is soft X 4 quads. GI: Reports diarrhea. : No signs and/or symptoms were reported regarding the genitourinary system. EENT: No signs and/or symptoms were reported regarding the EENT system. Derm: No signs and/or symptoms reported regarding the dermatologic system. Musculoskeletal: Range of motion: intact in all extremities. 16:54 Reassessment: pt actively vomiting at this time, provider notified. tw2 17:33 Reassessment: Patient appears in no apparent distress at this time. Patient and/or tw2 family updated on plan of care and expected duration. Pain level reassessed. Patient is alert, oriented x 3, equal unlabored respirations, skin warm/dry/pink. 18:25 Reassessment: Patient appears in no apparent distress at this time. No changes from tw2 previously documented assessment. Patient and/or family updated on plan of care and expected duration. Pain level reassessed. Patient is alert, oriented x 3, equal unlabored respirations, skin warm/dry/pink. 18:42 Reassessment: pt given water and sprite at this time for PO challenge, will continue to tw2 monitor. 19:03 Reassessment: pt tolerated PO challenge, provider notified. tw2 19:11 Reassessment: Patient appears in no apparent distress at this time. No changes from tw2 previously documented assessment. Patient and/or family updated on plan of care and expected duration. Pain level reassessed. Patient is alert, oriented x 3, equal unlabored respirations, skin warm/dry/pink. Vital Signs: 16:18 BP 135 / 59; Pulse 81; Resp 16 S; Temp 97.7(TE); Pulse Ox 95% on R/A; Weight 77.11 kg ca1 (R); Height 5 ft. 7 in. (170.18 cm) (R); Pain 7/10; 17:32 BP 145 / 80; Pulse 84; Resp 17; Pulse Ox 99% on R/A; tw2 18:43 BP 149 / 59; Pulse 78; Resp 17; Pulse Ox 100% on R/A; tw2 16:18 Body Mass Index 26.63 (77.11 kg, 170.18 cm) ca1 ED Course: 16:14 Patient arrived in ED. ag5 16:17 Kim Olguin, SUZETTE is Primary Nurse. tw2 16:22 Pillo See PA is PHCP. nubia 16:22 Stephen Miles MD is Attending Physician. m 16:27 Placed in gown. Bed in low position. Call light in reach. Side rails up X 1. Cardiac tw2 monitor on. Pulse ox on. NIBP on. 16:28 Triage completed. ca1 16:29 Arm band placed on right wrist. ca1 16:56 Inserted saline lock: 20 gauge in right antecubital area, using aseptic technique. dh4 Blood collected. 17:58 CT Stone Protocol In Process Unspecified. EDMS 19:11 No provider procedures requiring assistance completed. IV discontinued, intact, tw2 bleeding controlled, No redness/swelling at site. Pressure dressing applied. Administered Medications: 16:58 Drug: NS 0.9% 500 ml Route: IV; Rate: bolus; Site: right antecubital; tw2 17:30 Follow up: Response: No adverse reaction; IV Status: Completed infusion; IV Intake: tw2 500ml 16:58 Drug: Zofran (Ondansetron) 4 mg Route: IVP; Site: right antecubital; tw2 17:33 Follow up: Response: No adverse reaction; Nausea is decreased tw2 Intake: 17:30 IV: 500ml; Total: 500ml. tw2 Outcome: 19:04 Discharge ordered by . jmm 19:11 Discharged to home ambulatory. tw2 19:11 Condition: stable 19:11 Discharge instructions given to patient, Instructed on discharge instructions, follow up and referral plans. medication usage, Demonstrated understanding of instructions, follow-up care, medications, Prescriptions given X 2. 19:12 Patient left the ED. tw2 Addendum: 02/16/2020 14:38 Addendum: COVID-19 Result: Positive result giiven to ED physician to notify pt. i w Physician: Ad Lucas MD Physician left voice mail for pt to call the ED back. Signatures: Dispatcher [employer] EDMS Pillo See PA PA jmm Williams, Irene RN RN iw Kim Olguin RN RN tw2 Digna Lopez RN RN ca1 Murali Koch 5 Frank Chapman 4 Corrections: (The following items were deleted from the chart) 02/10 17:38 16:28 Allergies: No Known Allergies; 16:28 PMHx: Hypertension; 16:28 PMHx: CKD; 16:28 PMHx: fatty liver; 16:28 PMHx: Anxiety; 16:28 PMHx: CAD; 16:29 PMHx: Diverticulitis; ca1 tw2
--- NOTE | 2020-02-11 19:05 | EDPHYS ---
Physician Documentation [facility] Name: Sondra Ruelas Age: 69 yrs Sex: Female : 1950 Arrival Date: 02/11/2020 Time: 16:14 Bed 15 Private MD: ED Physician Stephen Miles HPI: 02/10 16:50 This 69 yrs old Black Female presents to ER via Ambulatory with complaints of Abdominal jmm Pain, Diarrhea. 16:50 The patient presents with abdominal pain. Onset: The symptoms/episode began/occurred jmm gradually, 2 day(s) ago. The symptoms do not radiate. Associated signs and symptoms: Pertinent positives: blood in stools, diarrhea, dysuria, fever, vaginal bleeding. This is a 69 year old female with a history of CAD, HTN, diverticulitis, CKD that presents to the ED with complaints of abdominal cramping and diarrhea. Denies vomiting, denies recent travel, denies recent abx use. . Historical: - Allergies: 16:29 Bactrim; ca1 - Home Meds: 16:28 fluoxetine 20 mg Oral cap 1 cap once daily [Active]; amlodipine 5 mg tab 1 tab once tw2 daily [Active]; carvedilol 12.5 mg Oral tab 1 tab 2 times per day [Active]; cetirizine 10 mg Oral tab 1 tab once daily [Active]; clopidogrel 75 mg Oral tab 1 tab once daily [Active]; Dexilant 60 mg Oral CpDB 1 cap once daily [Active]; gemfibrozil 600 mg Oral tab 1 tab 2 times per day [Active]; Vitamin D Oral 29844 unit [Active]; - PMHx: 16:28 Diverticulitis; tw2 16:29 "leaky heart valve"; tw2 16:29 Anxiety; CAD; CKD; fatty liver; Hypertension; ADD/ADHD; ca1 17:38 GERD; tw2 - PSHx: 16:28 Cholecystectomy; Hysterectomy; tw2 - Immunization history:: Adult Immunizations Adult Immunizations up to date. - Social history:: Smoking status: Smoking status: Patient denies any tobacco usage or history of. ROS: 16:50 Constitutional: Negative for fever, chills, and weight loss, Cardiovascular: Negative jmm for chest pain, palpitations, and edema, Respiratory: Negative for shortness of breath, cough, wheezing, and pleuritic chest pain. 16:50 Abdomen/GI: Positive for abdominal pain. 16:50 All other systems are negative. Exam: 16:50 Constitutional: This is a well developed, well nourished patient who is awake, alert, jmm and in no acute distress. Head/Face: atraumatic. Eyes: EOMI, no conjunctival erythema appreciated ENT: Moist Mucus Membranes Neck: Trachea midline, Supple Chest/axilla: Normal chest wall appearance and motion. Cardiovascular: Regular rate and rhythm. No edema appreciated Respiratory: Normal respirations, no respiratory distress appreciated Abdomen/GI: Non distended, soft Back: Normal ROM Skin: General appearance color normal MS/ Extremity: Moves all extremities, no obvious deformities appreciated, no edema noted to the lower extremities Neuro: Awake and alert, normal gait Psych: Behavior is normal, Mood is normal, Patient is cooperative and pleasant Vital Signs: 16:18 BP 135 / 59; Pulse 81; Resp 16 S; Temp 97.7(TE); Pulse Ox 95% on R/A; Weight 77.11 kg ca1 (R); Height 5 ft. 7 in. (170.18 cm) (R); Pain 7/10; 17:32 BP 145 / 80; Pulse 84; Resp 17; Pulse Ox 99% on R/A; tw2 18:43 BP 149 / 59; Pulse 78; Resp 17; Pulse Ox 100% on R/A; tw2 16:18 Body Mass Index 26.63 (77.11 kg, 170.18 cm) ca1 MDM: 16:42 Patient medically screened. [facility] 19:02 Data reviewed: vital signs, nurses notes. Counseling: I had a detailed discussion with [facility] the patient and/or guardian regarding: the historical points, exam findings, and any diagnostic results supporting the discharge/admit diagnosis, lab results, radiology results, the need for outpatient follow up, to return to the emergency department if symptoms worsen or persist or if there are any questions or concerns that arise at home. ED course: Patient is alert and non toxic in appearance in the ED. Patient has findings concerning for COVID [address] otherwise no acute processes. Patient is advised to follow up with pcp and otherwise given strict return precautions. Patient understood and agrees with the plan of care. . 02/10 16:43 Order name: Basic Metabolic Panel; Complete Time: 17:36 [facility] 02/10 16:43 Order name: CBC with Diff; Complete Time: 18:23 [facility] 02/10 16:43 Order name: Hepatic Function; Complete Time: 17:36 [facility] 02/10 16:43 Order name: Lipase; Complete Time: 17:36 [facility] 02/10 17:26 Order name: CBC Smear Scan; Complete Time: 18:23 [facility] 02/10 16:43 Order name: IV Saline Lock; Complete Time: 16:58 [facility] 02/10 16:43 Order name: Labs collected and sent; Complete Time: 16:58 [facility] 02/10 17:37 Order name: CT Stone Protocol; Complete Time: 18:23 [facility] 02/10 18:29 Order name: PO challenge; Complete Time: 19:11 [facility] Administered Medications: 16:58 Drug: NS 0.9% 500 ml Route: IV; Rate: bolus; Site: right antecubital; tw2 17:30 Follow up: Response: No adverse reaction; IV Status: Completed infusion; IV Intake: tw2 500ml 16:58 Drug: Zofran (Ondansetron) 4 mg Route: IVP; Site: right antecubital; tw2 17:33 Follow up: Response: No adverse reaction; Nausea is decreased tw2 Disposition: 02/11 07:35 Co-signature as Attending Physician, Stephen Miles MD. rn Disposition: 02/11/20 19:04 Discharged to Home. Impression: Diarrhea, unspecified. - Condition is Stable. - Discharge Instructions: Food Choices to Help Relieve Diarrhea, Adult, COVID-19. - Prescriptions for Zofran ODT 4 mg Oral tablet,disintegrating - place 1 tablet by TRANSLINGUAL route every 4-6 hours; 20 tablet. Bentyl 20 mg Oral Tablet - take 1 tablet by ORAL route every 6 hours As needed; 20 tablet. - Medication Reconciliation Form, Thank You Letter, Antibiotic Education, Prescription Opioid Use form. - Follow up: Private Physician; When: 2 - 3 days; Reason: Recheck today's complaints, Continuance of care, Re-evaluation by your physician. Signatures: Dispatcher [employer] EDPillo De León PA PA jmm Nieto, Roman, MD MD rn Wise, Tara, RN RN tw2 Digna Lopez RN RN ca1 Corrections: (The following items were deleted from the chart) 02/10 17:38 16:28 Allergies: No Known Allergies; tw2 tw2 17:38 16:28 PMHx: Hypertension; tw2 tw2 17:38 16:28 PMHx: CKD; tw2 tw2 17:38 16:28 PMHx: fatty liver; tw2 tw2 17:38 16:28 PMHx: Anxiety; tw2 tw2 17:38 16:28 PMHx: CAD; tw2 tw2 17:38 16:29 PMHx: Diverticulitis; ca1 tw2 19:11 19:04 02/11/2020 19:04 Discharged to Home. Impression: Diarrhea, unspecified. Condition tw2 is Stable. Forms are Medication Reconciliation Form, Thank You Letter, Antibiotic Education, Prescription Opioid Use. Follow up: Private Physician; When: 2 - 3 days; Reason: Recheck today's complaints, Continuance of care, Re-evaluation by your physician. nubia
[2020-02-11 19:43] VITALS: TEMP 97.7
[2020-02-11 19:46] VITALS: BP 149/59; O2SAT 100
== END 2020-02-11 19:12 | disposition home or self-care (01) ==
LOC: ER 16:12
DX: R19.7 Diarrhea, unspecified (principal); K21.9 Gastro-esophageal reflux disease without esophagitis; I12.9 Hypertensive chronic kidney disease with stage 1 through stage 4 chronic kidney disease, or unspecified chronic kidney disease; N18.9 Chronic kidney disease, unspecified; F90.9 Attention-deficit hyperactivity disorder, unspecified type; Z88.1 Allergy status to other antibiotic agents
CPT/HCPCS: 96361; 85025; 80048; 36415; 80076; 83690; 76377; 74176; 96374; 99284; J7040; J2405